=== PATIENT | male | born 1965 | race Caucasian/White ===

== ENCOUNTER 2017-11-01 09:01 | Observation (INO) | payer BC, OTHER ==
[2017-11-01] VITALS (7 sets, daily range): BP systolic 119–167; BP diastolic 76–97; PULSE 78–111; TEMP 36.8–37.6; O2SAT 93–97; Ht 162.6 cm; Wt 84.0 kg
[~2017-11-01] VITALS: Ht 162.6 cm; Wt 84.0 kg
[~2017-11-01 09:01] MED LIST: CEFAZOLIN 2000MG IV PUSH 15 ML IV SCH; SOD PHOSPHATE/SOD BIPHOSPHATE ENEMA 132 ML BTL PR SCH
[2017-11-01] MEDS ORDERED: BISA10SU3 PR (09:45)
[2017-11-01 10:04] LABS: BASO % 0.4 %; BASO ABS # 0.04 K/uL (0-0.2); EOS % 1.9 %; EOS ABS # 0.17 K/uL (0-0.5); HEMATOCRIT 45.5 % (42-52); HEMOGLOBIN 16.4 g/dL (14.0-18.0); IG# 0.04 K/uL (0.00-0.02); LYMPH % 28.5 %; LYMPH ABS # 2.57 K/uL (1.2-3.4); MEAN CELL VOLUME 85.8 fL (80-100); MEAN CORPUSCULAR HEMOGLOBIN 30.9 pg (25-34); MEAN PLATELET VOLUME 9.6 fL (7.4-10.4); MONO ABS # 0.72 K/uL (0.11-0.59); NEUT % 60.8 %; NEUT ABS # 5.47 K/uL (1.4-6.5); PLATELET COUNT 274 K/uL (130-400); RED CELL DISTRIBUTION WIDTH CV 12.8 % (11.5-14.5); RED CELL DISTRIBUTION WIDTH SD 40.4 fL (36.4-46.3); WHITE BLOOD COUNT 9.01 K/uL (4.8-10.8)
[2017-11-01] MEDS ORDERED: SOD PHOSPHATE/SOD BIPHOSPHATE ENEMA 132 ML BTL ONE (10:15)
[2017-11-01 10:45] LABS: CALCIUM 9.1 mg/dl (8.5-10.1); CREATININE 1.18 mg/dl (0.60-1.40)
[2017-11-01] MEDS ORDERED: NURSING VERBAL MED ORDER ONE (10:45)
[2017-11-01] MEDS ORDERED: SOD PHOSPHATE/SOD BIPHOSPHATE ENEMA 132 ML BTL PR SCH (11:00)
[2017-11-01] MEDS ORDERED: MIDAZOLAM HCL 1 MG/ML 2ML VIAL ONE (12:59)
[2017-11-01] MEDS ORDERED: FENTANYL CITRATE INJ 50 MCG/1 ML 2 ML VIAL ONE ×2 (12:59→13:37)
[2017-11-01] MEDS ORDERED: BUPIVACAINE 0.5 % 5 MG/1 ML MPF 30ML VIAL ONE (13:04)
[2017-11-01] MEDS ORDERED: GELATIN SPONGE SZ 100 ONE (13:04)
[2017-11-01] MEDS ORDERED: GELATIN SPONGE 12-7MM ONE (13:04)
[2017-11-01] MEDS ORDERED: ISOSULFAN BLUE 10 MG/ML VIAL 5 ML ONE (13:05)
[2017-11-01] MEDS ORDERED: LIDOCAINE HCL 1% 20 ML VIAL ONE (13:05)
--- NOTE | 2017-11-01 13:08 | History & Physical Bridge Note ---
H&P Re-Evaluation Bridge Note: I have examined the patient, reviewed the History & Physical and in the interval since the performance of the History & Physical I have noted the following changes of clinical significance: No changes noted
[2017-11-01] MEDS ORDERED: GLYCOPYRROLATE INJ 0.2 MG/ML VIAL ONE (13:51)
[2017-11-01] MEDS ORDERED: LIDOCAINE HCL 2% 2 ML VIAL (20MG/ML) ONE (13:51)
[2017-11-01] MEDS ORDERED: ONDANSETRON INJ 2 MG/ML 2 ML VIAL ONE (13:51)
[2017-11-01] MEDS ORDERED: NEOSTIGMINE METHYLSULFATE 5 MG/5 ML SYR ONE (13:51)
[2017-11-01] MEDS ORDERED: ROCURONIUM BROMIDE 10 MG/ML 5 ML VIAL IV ONE (13:51)
[2017-11-01] MEDS ORDERED: DEXAMETHASONE SOD INJ 4 MG/ML VIAL ONE (13:51)
[2017-11-01] MEDS ORDERED: PROPOFOL IV EMULSION 10 MG/ML 20 ML VIAL IV ONE (13:51)
[2017-11-01] MEDS ORDERED: EpHEDrine SULFATE INJ 50 MG/ML AMP IV PRN (14:00)
[2017-11-01] MEDS ORDERED: MEPERIDINE HCL 25 MG/ML CARP IV PRN (14:00)
[2017-11-01] MEDS ORDERED: LABETALOL HCL IV 5 MG/ML 20ML IV PRN (14:00)
[2017-11-01] MEDS ORDERED: ONDANSETRON INJ 2 MG/ML 2 ML VIAL IV PRN ×2 (14:00→14:15)
[2017-11-01] MEDS ORDERED: FENTANYL CITRATE INJ 50 MCG/1 ML 2 ML VIAL IV PRN (14:00)
[2017-11-01] MEDS ORDERED: ATROPINE SULFATE 0.1 MG/ML 5ML SYR IV PRN (14:00)
[2017-11-01] MEDS ORDERED: HYDROmorphone INJ 1 MG/ML SYR IV PRN (14:00)
[2017-11-01] MEDS ORDERED: HYDROmorphone INJ 2 MG/ML SYR/VIAL ONE (14:04)
--- NOTE | 2017-11-01 14:05 | [facility] Post Operative Brief Note ---
Immediate Operative Summary Operative Date Nov 01, 2017. Pre-Operative Diagnosis Grade 4 Thrombosed Internal Hemorrhoid Post-Operative Diagnosis Grade 4 Thrombosed Internal Hemorrhoid Procedure(s) Performed Hemorrhoidectomy Surgeon Dr. Gómez Tapia Trace Evidence Technician Surgeon(s) Christal Mendoza PA-C Estimated Blood Loss 10ml Findings Consistent with Post-Op Diagnosis Specimens Specimen A) Hemorrhoidal tissue Drains None Anesthesia Type General Complication(s) none
[2017-11-01] MEDS ORDERED: MoRPHine SULFATE 4 MG/ML 1 ML CARP\\VIAL IV PRN (14:15)
[2017-11-01] MEDS ORDERED: KETOROLAC TROMETHAMINE 30 MG/ML VIAL ONE (14:17)
--- NOTE | 2017-11-01 15:10 | Anesthesiology Progress Note ---
Anesthesia Post Op Note Date & Time Nov 01, 2017 at 15:09 Vital Signs Pain Intensity: 0 Vital Signs Past 12 Hours Date Time Temp Pulse Resp B/P (MAP) Pulse Ox O2 Delivery O2 Flow Rate FiO2 11/01/17 15:00 92 18 145/92 97 Nasal Cannula 2 11/01/17 14:50 77 18 152/96 98 Nasal Cannula 2 11/01/17 14:40 79 18 149/92 98 Oxymask 10 11/01/17 14:30 78 14 132/82 98 Oxymask 10 11/01/17 14:22 37.1 82 14 134/71 95 Oxymask 10 11/01/17 09:45 37 89 18 122/84 (97) 97 Room Air Notes Mental Status: alert / awake / arousable, participated in evaluation Pt Amnestic to Procedure: Yes Nausea / Vomiting: adequately controlled Pain: adequately controlled Airway Patency, RR, SpO2: stable & adequate BP & HR: stable & adequate Hydration State: stable & adequate Anesthetic Complications: no major complications apparent
[2017-11-01] MEDS ORDERED: IV FLUIDS COMPLETED PRN (16:00)
[2017-11-01] MEDS ORDERED: D5W AND 1/2NSS + 20MEQ KCL 1,000 ML IV SCH (17:00)
--- NOTE | 2017-11-01 18:22 | OPERATIVE REPORT ---
DATE OF OPERATION: 11/01/2017 PREOPERATIVE DIAGNOSIS: Thrombosed grade 4 internal hemorrhoids. POSTOPERATIVE DIAGNOSIS: Same. PROCEDURE: Hemorrhoidectomy. SURGEON: Dr. Tapia. TITLE SEARCH MANAGER: Christal Mendoza PA-C. FINDINGS: The patient had 1 large thrombosed grade 4 internal hemorrhoid along the right lateral wall of the anal opening. There was a lot of edema surrounding the entire anal opening. There was a smaller thrombosed grade 3 hemorrhoid posterior left. There were some other areas of thrombosis that were much smaller on the anterior side. TECHNIQUE: The patient was given a general anesthetic and then positioned prone. The area was prepped and draped in the usual sterile fashion. The large thrombosed hemorrhoid was addressed first. It was grasped with 2 Allis on the end and elevated. The junction between the anoderm and the rectal mucosa was opened first laterally and then medially and then the hemorrhoid was amputated, it off the underlying sphincter muscles. There were few other areas of clot that were opened and the clot removed. The anoderm edge was then reapproximated to the mucosa of the rectum using a running 2-0 chromic locked suture. The smaller hemorrhoid was then removed in a similar fashion. The clot areas anteriorly were opened and the clot removed. The area was inspected for bleeding and none was seen. The anus was then packed with Gelfoam. Estimated blood loss was 10 mL. Sponge, needle and instrument counts were correct prior to closure. The patient tolerated the surgical procedure without complication and was transferred to recovery. I attest to the content of the Intraoperative Record and any orders documented therein. Any exception s are noted below.
[2017-11-01] MEDS: DOCUSATE SODIUM 100 MG CAP PO SCH (20:40)
[2017-11-02 03:56] VITALS: BP 143/84; PULSE 81; TEMP 37.3; O2SAT 95
[2017-11-02] MEDS: OXYCODONE/ACETAMINOPHEN 5-325 TAB PO PRN ×2 (05:30→14:25)
[2017-11-02 06:52] VITALS: BP 107/69; PULSE 72; TEMP 36.8; O2SAT 97
--- NOTE | 2017-11-02 08:34 | Anesthesiology Progress Note ---
Anesthesia Post Op Note Date & Time Nov 02, 2017 at 08:33 Vital Signs Pain Intensity: 3 Vital Signs Past 12 Hours Date Time Temp Pulse Resp B/P (MAP) Pulse Ox O2 Delivery O2 Flow Rate FiO2 11/02/17 06:52 36.8 72 19 107/69 (82) 97 Room Air 11/02/17 03:56 37.3 81 16 143/84 (103) 95 Room Air 11/01/17 23:22 Room Air 11/01/17 21:53 37.3 78 18 130/76 (94) 95 Room Air Notes Mental Status: alert / awake / arousable Pt Amnestic to Procedure: Yes Nausea / Vomiting: adequately controlled Pain: adequately controlled Airway Patency, RR, SpO2: stable & adequate BP & HR: stable & adequate Hydration State: stable & adequate Anesthetic Complications: p t is having urinary retention. pt was straight cathed last night.
[2017-11-02] MEDS: DOCUSATE SODIUM 100 MG CAP PO SCH (09:43)
--- NOTE | 2017-11-02 11:23 | Surgery Progress Note ---
Surgery Progress Note Date of Service Nov 02, 2017. Subjective Post OP Day: 1 (s/p excision of thrombosed hemorrhoid) + feeling well, + ambulating, + pain controlled, + diet, No chest pain, No SOB, No bowel movement, No flatus, No nausea, No vomiting Objective Vital Signs: Date Time Temp Pulse Resp B/P (MAP) Pulse Ox O2 Delivery O2 Flow Rate FiO2 11/02/17 07:45 Room Air 11/02/17 06:52 36.8 72 19 107/69 (82) 97 Room Air 11/02/17 03:56 37.3 81 16 143/84 (103) 95 Room Air 11/01/17 23:22 Room Air 11/01/17 21:53 37.3 78 18 130/76 (94) 95 Room Air 11/01/17 19:07 37.3 111 18 119/79 (92) 95 Nasal Cannula 2.0 11/01/17 17:32 37.1 109 18 134/85 (101) 93 Nasal Cannula 2.0 11/01/17 16:30 37.6 109 18 167/93 (117) 95 Nasal Cannula 2.0 11/01/17 16:00 36.8 84 16 138/91 (107) 97 Nasal Cannula 2.0 11/01/17 15:45 Nasal Cannula 2.0 11/01/17 15:45 36.9 84 16 155/97 (116) 94 Nasal Cannula 2.0 11/01/17 15:45 36.9 84 16 155/97 94 Nasal Cannula 2.0 11/01/17 15:45 Nasal Cannula 2.0 11/01/17 15:25 37.4 78 18 145/99 97 Nasal Cannula 2 11/01/17 15:15 78 14 156/100 95 Nasal Cannula 2 11/01/17 15:00 92 18 145/92 97 Nasal Cannula 2 11/01/17 14:50 77 18 152/96 98 Nasal Cannula 2 11/01/17 14:40 79 18 149/92 98 Oxymask 10 11/01/17 14:30 78 14 132/82 98 Oxymask 10 11/01/17 14:22 37.1 82 14 134/71 95 Oxymask 10 General Appearance: WD/WN, no apparent distress Head: normocephalic, atraumatic Neck: trachea midline Respiratory/Chest: no respiratory distress, no accessory muscle use External Rectal examination: Inspection showed Gelfoam still present in rectum. There is still moderate edema of rectal tissue, healthy pink tissue, no necrosis, no drainage, no active bleeding. Assessment & Plan POD # 1 s/p Excision of thrombosed hemorrhoid -vitals stable -afebrile - pain minimal, controlled - no bowel function - urinary retention, required straight cath last night, able to urinate post straight cath but still feels inadequately voiding Plan: Continue current pain management Continue regular diet Encourage ambulation Bladder scan prn unable to void completely Patient seen with Dr. Tapia around 1:30 pm Voiding without difficulty, tolerating diet, pain controlled Discharge home this afternoon f/u surgical office 1 week discharge instructions reviewed Rx for Percocet prn pain and Colace BID Dr. Tapia has seen patient, agrees with above
[2017-11-02] MEDS ORDERED: OXYC-57 PO (13:44)
--- NOTE | 2017-11-02 13:51 | Discharge Instructions ---
Discharge Instructions Date of Service Nov 02, 2017. Admission Reason for Admission: Internal Hemorrhoids Discharge Discharge Diagnosis / Problem: same, Thrombosed internal hemorrhoid Discharge Goals Goal(s): Decrease discomfort, Improve function Activity Recommendations Activity Limitations: per Instructions/Follow-up section No strenuous activity until cleared by surgeon No driving while taking narcotic pain medication or until you are pain free . Instructions / Follow-Up Instructions / Follow-Up You may shower when you get home Sitz baths following bowel movements Avoid any constipation or straining. (drink plenty of water, Stool softener twice a day, light activity and increase fiber in diet) You will be given narcotic pain medication as needed for moderate to severe pain. You may take extra strength Ibuprofen as needed for mild pain. You may take extra strength Tylenol as needed for mild pain if you are no longer taking Percocet as Percocet has Tylenol in it. Follow up surgical office in 1 week, please call office at [phone] to make an appointment. Current Hospital Diet Patient's current hospital diet: Regular Diet Discharge Diet Recommended Diet: Regular Diet (high fiber diet) Procedures Procedures Performed: Hemorrhoidectomy Pending Studies Studies pending at discharge: yes List of pending studies: Hemmorrhoid pathology- will be reviewed at follow up visit Medical Emergencies . Who to Call and When: Medical Emergencies: If at any time you feel your situation is an emergency, please call 911 immediately. . Non-Emergent Contact Non-Emergency issues call your: Primary Care Provider, Surgeon Call Non-Emergent contact if: you have a fever, temperature is above 101, your pain is not controlled, your pain is worsening, your pain is unusual for you, wound has increased drainage, wound has increased redness, wound has increased pain . "Provider Documentation" section prepared by Christal Mendoza. . VTE Core Measure Inpt VTE Proph given/why not?: Treatment not indicated [place] Drug Monitoring Program Search Results: patient reviewed within database, no issues identified
[2017-11-02] MEDS ORDERED: DOCU-94 PO (13:52)
[2017-11-02 14:03] VITALS: BP 107/69; PULSE 72; TEMP 36.8; O2SAT 97
[2017-11-02 15:06] VITALS: BP 128/78; PULSE 81; TEMP 37; O2SAT 94
--- NOTE | 2017-11-05 11:18 | Discharge Summary ---
Discharge Summary Dates Admission Date / Time: Nov 01, 2017 at 14:09 Discharge Date: Nov 02, 2017 Dispostion / Condition Discharge Disposition: Home Condition at Discharge: Good Principal Diagnosis (1) Grade IV internal hemorrhoids Problem List (1) No chronic problems Consultations / Procedures Consultations: None Procedures: Hemorrhoidectomy Vaccinations: None Pending Studies / Follow-Up Hemorrhoid pathology. Will be reviewed at follow-up visit Medication Reconciliation New Medications: Docusate Sodium (Colace) 100 Mg Cap 1 CAP PO BID for 30 Days, #60 CAP Oxycodone/Acetaminophen 5MG/325MG (Percocet 5MG/325MG) Tab 1 TABLET PO Q4H PRN for Pain, #18 TAB Discontinued Medications: Bisacodyl (Dulcolax) 10 Mg Sup 1 SUPP AR, SUP Admission HPI Per the Admitting provider: Andrew is a 52-year-old male who presented to outpatient surgical office on Wednesday to see Dr. Tapia for rectal pain he was found to have grade 4 thrombosed hemorrhoids. His pain continued and escalated over the weekend therefore he presented to [facility] for hemorrhoidectomy. Hospital Course (1) Grade IV internal hemorrhoids Patient underwent hemorrhoidectomy by Dr. Tapia in the operating room. Patient tolerated procedure well without any difficulties. Patient was transferred to recovery room and then the medical/surgical floor for postoperative care. Was kept overnight for observation and pain management. He was started on regular diet, IV fluids, p.o. Percocet with IV morphine for breakthrough pain, IV Zofran as needed for nausea, and activity as tolerated. Patient was evaluated in the morning of postop day #1. He did have some urinary retention which required straight catheterization. There was about 600 cc of urine from the straight cath. He was able to urinate on his own following straight catheterization. Pain was minimal and controlled. Tolerating regular diet. Patient was discharged home on postop day #1 in stable condition Discharge Instructions As given the patient Copies To Primary Care Provider: Rosalind Waters D.O..
== END 2017-11-02 15:45 | disposition home or self-care (01) ==
LOC: C.OR 09:01 → C.MSN 14:09 → ENRESERV 15:19
PROVIDERS: ADMIT Surgery; ATTEND Surgery
DX: K64.3 Fourth degree hemorrhoids (principal); Z87.891 Personal history of nicotine dependence; Z82.49 Family history of ischemic heart disease and other diseases of the circulatory system; Z82.3 Family history of stroke

== ENCOUNTER 2023-08-20 01:06 | Observation (INO) ==
[2023-08-20 01:37] LABS: Basophils # (auto) 0.05 K/uL (0.00-0.20); Basophils % (auto) 0.5 %; Eosinophils # (auto) 0.29 K/uL (0.00-0.50); Eosinophils % (auto) 3.1 %; Hematocrit (blood only) 49.8 % (42.0-52.0); Hemoglobin 16.9 g/dl (14.0-18.0); Immature Granulocytes # (auto) 0.05 K/uL (0.01-0.20); Immature Granulocytes % (auto) 0.5 %; Lymphocytes # (auto) 2.26 K/uL (1.20-3.40); Lymphocytes % (auto) 24.2 %; Mean Corpuscular Hemoglobin 29.3 pg (25.0-34.0); Mean Corpuscular Hgb Conc 33.9 g/dL (32.0-36.0); Mean Corpuscular Volume 86.3 fL (80.0-100.0); Monocytes % (auto) 9.7 %; Neutrophils # (auto) 5.77 K/uL (1.40-6.50); Platelet Count 257 K/uL (130-400); RDW Coefficient of Variation 12.3 % (11.5-14.5); RDW Standard Deviation 38.5 fL (36.4-46.3); Red Blood Count 5.77 M/uL (4.70-6.10); White Blood Count 9.32 K/ul (4.8-10.8)
[2023-08-20 01:51] LABS: Partial Thromboplastin Ratio 1.1; Partial Thromboplastin Time 29.9 Seconds (21.0-31.0); Prothrombin Time 11.3 Seconds (9.0-12.0)
[2023-08-20 01:59] LABS: Albumin Globulin Ratio 1.3 (0.9-2); Albumin Level 4.6 gm/dl (3.4-5.0); BUN Creatinine Ratio 13.8 (10-20); Bilirubin,Total 1.2 mg/dl (0.2-1.0); Calcium 9.5 mg/dl (8.6-10.3); Creatinine Clr Calc Pharmacy 74.3 ml/min; Est GFR (African American) 86.9 ml/min; Est GFR (Non-African American) 74.9 ml/min; Globulin 3.5 gm/dl (2.5-4.0); Potassium 3.9 mmol/L (3.5-5.1); Total Protein 8.1 gm/dl (6.0-8.3)
[2023-08-20 02:05] LABS: Troponin I High Sensitivity 3.9 pg/ml (0-20)
[2023-08-20] MEDS ORDERED: SODIUM CHLORIDE 0.9% 1,000 ML IV ONE (03:27)
--- NOTE | 2023-08-20 03:30 | Emergency Department Note ---
Impression & Plan Abnormal ECG, Chest pain, Former tobacco use ED Provider Note Name: STEW WEST Age: 58 Sex: Male Arrives Via: Walk-In Informant: Patient, ED Provider: Brandt Pandey MD Chief Complaint: Chest pain Impression: As per impressions above Medical Decision Making: Pleasant 58-year-old male with distant history smoking as well as significant family history of CAD arrives for pressure-like upper chest pain radiating to shoulders. He is quite uncomfortable appearing initial EKG questionable ST depressions anteriorly. Initial troponin labs look good. Repeat EKG shows worsening of ST depression T wave inversions. Repeat troponin is also still within normal range. D-dimer is normal thus PE is unlikely. His symptoms are not consistent with dissection. He was given some aspirin and nitro and pain seems to have improved. He was a bit hypertensive on arrival and with improving blood pressure hypertensive urgency is possible although blood pressure was not really that elevated to cause the sort of symptom. I am still a bit concerned about unstable angina especially given the EKG abnormalities and despite normal troponins I think hospitalization for further cardiac work-up is likely indicated. I discussed this with the [facility] and they agree and will bring him in for further management. Patient is on board with this plan as his . I did explain to them reasoning behind hospitalization and they agree. Triage/Nursing Notes reviewed by Me Differential:Cardiac ischemia, aortic dissection, pulmonary embolism, pneumothorax, pneumonia, pericarditis, myocarditis, esophageal rupture, GERD, cholecystitis, pancreatitis, musculoskeletal, as well as other pathologies. Vital Signs: reviewed and remarkable for hypertensive Interventions: Aspirin 324 mg p.o., sublingual nitroglycerin Labs:ED labs Reviewed by me and remarkable for no significant abnormalities with normal D-dimer and normal troponin x2 Imagin view chest x-ray as per my interpretation no infiltrate, effusion, widened cardiac border, pneumothorax EKG#1 as per my interpretation. Indication chest pain. Somewhat poor baseline but normal sinus rhythm at 92 bpm QTc of 417. There are T wave inversions in the anterior leads. When compared to EKG from November 01, 2017 T wave inversions are new. EKG#2:As per my interpretation. Indication chest pain. Normal sinus rhythm at 97 bpm QTc 419. There are anterior ST depressions with T wave inversions. There is no STEMI or reciprocal change. When compared to EKG from earlier in evening ST depressions have worsened. Cardiac/Tele Monitoring: Cardiac Monitoring: An Order was placed for continuous cardiac monitoring. The monitor shows a rate of 90 with a normal sinus rhythm. Consults:Dr. Mendoza of the [facility] Plan: Disposition:Hospitalization. Condition: [Good] [Referrals: PCP][] Prescriptions:[] PDMP: [] History of Present Illness: Pleasant 58-year-old gentleman arrives for evaluation of upper chest discomfort. Notes around 10:30 PM developed increasing tightness of the upper chest. Associated with mild cough. Associated with chills and feeling cold. Notes heart rate was somewhat elevated as well as blood pressure. He just does not feel himself. Has never had any symptoms like this before. Denies any syncope, sharp chest pain, back pain, abdominal pain, radiation of symptoms or other concerning signs or symptoms. Has not had any recent fevers, chills, nausea, vomiting. No leg swelling or calf pain. Patient does note that he travels regularly including to [email or web address] and flies often. No here history of significant medical issues. No history of cardiac disease or PE/DVT. He does have a familial history of early cardiac disease in both his father and mother. Patient was a smoker for many years but quit almost 2 and half decades ago. Past Medical History:No significant past medical history other than smoker quit 25 years ago Home Medications:No daily medications Allergies:No known drug allergies Vitals:Blood Pressure: 160/112, Pulse 90, RR 20, T 36.4C, O2 96% on RA Physical Exam: GENERAL: Patient is anxious appearing and in minimal distress. RESPIRATORY: No dyspnea. Clear to auscultation and equal bilaterally. CARDIOVASCULAR: Regular rate and rhythm.No murmur appreciated. GASTROINTESTINAL: Abdomen soft, non-tender, no peritonitis. BACK: No midline tenderness, no CVA tenderness EXTREMITIES: Normal motion all extremities, no cyanosis, no edema. NEUROLOGIC: Alert and oriented. No focal neurologic deficits appreciated SKIN: No rash, no jaundice, no diaphoresis. PSYCH: Appropriate GCS: 15 ED Course: Times/Reassessments: Patient's pain eventually improving continued abnormality in EKG and patient and are comfortable with plan for hospitalization. Brandt Pandey MD Past Med/Surg History Social History (Reviewed 08/20/23 @ 12:42 by AMANDA Maher Smoking Status: Former smoker Second Hand Exposure: No; Do You Dip or Chew Tobacco: No; Tobacco Cessation Education Requested by Patient: No Hx Alcohol Use: Yes Hx Substance Use: No Preferred Language: Sudanese Communication Ability: Effective Court Officer Required: No Beliefs That Will Affect Care: None Current Living Situation: Spouse Other Information That Helps Us Care for You: No Feels Safe at Home: Yes Safety Concerns: Feels Safe At This Time Assistive Devices: None Allergies Allergies Allergy/AdvReac Type Severity Reaction Status Date / Time No Known Allergies Allergy Unverified 08/20/23 02:18 Home Meds Home Medications Medication Instructions Recorded Confirmed No Known Home Medications 08/20/23 08/20/23 Results & Data (ED) Vital Signs Vital Signs - 24 hr 08/20/23 01:08 08/20/23 02:22 08/20/23 02:50 Temperature 36.4 C L Temperature Source Temporal Artery Scan Pulse Rate 88 94 H Pulse Rate [Apical] 90 Pulse Rhythm [Apical] Regular Pulse Strength [Apical] Normal Respiratory Rate 18 20 Respiratory Effort / Characteristics Non-Labored Spontaneous Respiratory Depth Normal Normal Respiratory Pattern Regular Blood Pressure 159/99 H Blood Pressure [Right Arm] 160/112 H Blood Pressure Mean 119 Blood Pressure Mean [Right Arm] 128 Blood Pressure Position [Right Arm] Lying Pulse Oximetry 97 96 Oxygen Delivery Method Room Air Room Air Sepsis Recent Fever Within 48 Hours No Sepsis New/Unexplained Change in Mental Status No Sepsis Action Taken by Nursing No Action Required 08/20/23 05:00 Temperature Temperature Source Pulse Rate Pulse Rate [Apical] 92 H Pulse Rhythm [Apical] Regular Pulse Strength [Apical] Normal Respiratory Rate 20 Respiratory Effort / Characteristics Non-Labored Spontaneous Respiratory Depth Normal Respiratory Pattern Regular Blood Pressure Blood Pressure [Right Arm] 112/76 Blood Pressure Mean Blood Pressure Mean [Right Arm] 88 Blood Pressure Position [Right Arm] Pulse Oximetry 95 Oxygen Delivery Method Room Air Sepsis Recent Fever Within 48 Hours Sepsis New/Unexplained Change in Mental Status Sepsis Action Taken by Nursing Laboratory Data 08/20/23 01:20 08/20/23 01:20 Lab Results 08/20/23 08/20/23 08/20/23 Range/Units 01:20 03:45 03:48 WBC 9.32 (4.8-10.8) K/ul RBC 5.77 (4.70-6.10) M/uL Hgb 16.9 (14.0-18.0) g/dl Hct 49.8 (42.0-52.0) % MCV 86.3 (80.0-100.0) fL MCH 29.3 (25.0-34.0) pg MCHC 33.9 (32.0-36.0) g/dL RDW Std Deviation 38.5 (36.4-46.3) fL RDW Coeff of Araseli 12.3 (11.5-14.5) % Plt Count 257 (130-400) K/uL MPV 9.0 L (9.4-12.4) fL Immature Gran % (Auto) 0.5 % Neut % (Auto) 62.0 % Lymph % (Auto) 24.2 % [place] % (Auto) 9.7 % Eos % (Auto) 3.1 % Baso % (Auto) 0.5 % Neut # (Auto) 5.77 (1.40-6.50) K/uL Lymph # (Auto) 2.26 (1.20-3.40) K/uL [place] # (Auto) 0.90 H (0.11-0.59) K/uL Eos # (Auto) 0.29 (0.00-0.50) K/uL Baso # (Auto) 0.05 (0.00-0.20) K/uL Immature Gran # (Auto) 0.05 (0.01-0.20) K/uL PT 11.3 (9.0-12.0) Seconds INR 1.0 (0.9-1.1) APTT 29.9 (21.0-31.0) Seconds PTT Ratio 1.1 D-Dimer 210 (0-500) ug/L FEU Sodium 139 (136-145) mmol/L Potassium 3.9 (3.5-5.1) mmol/L Chloride 102 (98-107) mmol/L Carbon Dioxide 29 (21-32) mmol/L Anion Gap 8 (3-11) BUN 15 (6-23) mg/dl Creatinine 1.09 (0.6-1.4) mg/dl Est Cr Clr Drug Dosing 74.3 ml/min Est GFR ( Amer) 86.9 ml/min Est GFR (Non-Af Amer) 74.9 ml/min BUN/Creatinine Ratio 13.8 (10-20) Glucose 105 H (70-99(Fasting)) mg/dl Calcium 9.5 (8.6-10.3) mg/dl Magnesium 2.1 (1.7-2.4) mg/dl Total Bilirubin 1.2 H (0.2-1.0) mg/dl AST 23 (13-39) U/L ALT 33 (7-52) U/L Alkaline Phosphatase 51 (34-104) U/L Troponin I High Sens 3.9 3.6 (0-20) pg/ml Total Protein 8.1 (6.0-8.3) gm/dl Albumin 4.6 (3.4-5.0) gm/dl Globulin 3.5 (2.5-4.0) gm/dl Albumin/Globulin Ratio 1.3 (0.9-2) SARS-CoV-2 (PCR) NEGATIVE (Negative) Influenza Type A (PCR) Negative (Neg) Influenza Type B (PCR) Negative (Neg) RSV (RT-PCR) Negative (Neg) Administered Medications Discontinued Medications Aspirin (Aspirin 81 Mg Chew) 324 mg PO NOW STA Stop: 08/20/23 03:51 Last Admin: 08/20/23 03:59 Dose: 324 mg Documented By: AUGUST Enoxaparin Sodium (Enoxaparin Inj 40 Mg/0.4 Ml Syr) 40 mg SQ QAM JASON Stop: 09/19/23 08:59 Last Admin: 08/20/23 11:39 Dose: 40 mg Documented By: Heparin Sodium/Dextrose (Heparin Iv Adult Wt-Based Standard *No* Bolus Protocol) 1 each IV Q30M [facility]; Protocol Stop: 08/20/23 08:09 Last Admin: 08/20/23 05:53 Dose: Not Given Documented By: AUGUST Sodium Chloride (Nss) 1,000 mls @ 999 mls/hr IV .Q1H1M ONE Stop: 08/20/23 04:27 Last Infusion: 08/20/23 05:34 Dose: Infused Documented By: Admin: 08/20/23 03:59 Dose: 999 mls/hr Documented By: NAW Lactated Ringer's (Lr) 1,000 mls @ 60 mls/hr IV .[id number] ONE Stop: 08/20/23 22:25 Last Admin: 08/20/23 06:32 Dose: 60 mls/hr Documented By: AUGUST Metoprolol Tartrate (Metoprolol Tartrate 25 Mg Tab) 12.5 mg PO NOW STA Stop: 08/20/23 05:47 Last Admin: 08/20/23 05:53 Dose: Not Given Documented By: AUGUST Nitroglycerin (Nitroglycerin Sl 0.4 Mg/Tab Tab) 0.4 mg SL NOW STA Stop: 08/20/23 03:51 Last Admin: 08/20/23 03:59 Dose: 0.4 mg Documented By: AUGUST Imaging Data Radiologist's Impression: Chest X-Ray 08/20/23 01:12 XR chest 1V not portable CLINICAL HISTORY: Chest pain, nonspecific TECHNIQUE: Single frontal radiograph of the chest was obtained. Comparison: None available at the time of this dictation. FINDINGS: No lines and tubes are seen. The cardiomediastinal silhouette is normal. The lungs are clear. No evidence of pleural effusion or pneumothorax. IMPRESSION: No acute chest disease. ACT 112: Negative or not required by law. Electronically signed by: Carlos Dow M.D. 08/20/2023 7:54 AM Discharge Plan Visit Data Chief Complaint: Cardiac Assessment Stated Complaint: CHEST TIGHTNESS AND PAIN ED Provider: Brandt Pandey Discharge Problem: Abnormal ECG, Chest pain, Former tobacco use Patient Disposition: Admitted As Inpatient Discharge Instructions Interventions: ED Discharge Assessment Last Done: 08/20/23 07:53
[2023-08-20] MEDS ORDERED: ASPIRIN 81 MG CHEW PO STA (03:50)
[2023-08-20] MEDS ORDERED: NITROGLYCERIN SL 0.4 MG/TAB TAB SL STA (03:50)
[2023-08-20 03:51] LABS: D Dimer 210 ug/L FEU (0-500)
[2023-08-20 04:30] LABS: Influenza A virus by PCR Negative (Neg); Influenza B virus by PCR Negative (Neg); RSV by PCR Negative (Neg); SARS CoV2 RNA(COVID-19) Ceph NEGATIVE (Negative)
[2023-08-20 04:59] LABS: Magnesium 2.1 mg/dl (1.7-2.4)
--- NOTE | 2023-08-20 05:37 | History & Physical Report ---
Date of Service August 20, 2023 Assessment & Plan (1) Chest pain: Plan: Rule out ACS given nitroglycerin relief and patient risk factors for ischemic heart disease Situational hypertension Past tobacco abuse OBS PCU Follow troponin, initiate beta-tarun and IV heparin if with subsequent troponin elevation Aspirin for CAD prevention until ACS ruled out Cardiology consult Re: Chest pain N.p.o. until patient seen by cardiology in anticipation of ischemic work-up DVT prophylaxis. Lovenox subcu Full code Case discussed with Dr. Fontanez (composing machine operator) over the phone given possible ST elevations in the inferior leads on second EKG done at the ER. EKGs transmitted to him via [place] text. Possible pericarditis as per Dr. Fontanez. He recommends getting an urgent TTE and consulting [facility] cardiology in a.m. to evaluate patient. He will also contact Dr. Soto of [facility] in a.m. regarding patient. Text document was generated using Proficiency voice recognition software. It may contain grammatical or spelling errors. Kindly contact undersigned for clarification of any documentation item in question. History of Present Illness Chief Complaint: Chest pain Primary Care Provider: Rosalind Waters DO History obtained from patient, family, and records. Medical history significant for past tobacco abuse. Last confinement 2017 under General Surgery service for elective hemorrhoidectomy. Patient was watching a football game last night when he experienced pleuritic substernal pain different from reflux. No cough, no SOB, no trauma. No previous episodes. Denies headache symptoms. Highest SBP of 160s documented at the ER. Chest pain relieved after aspirin and nitroglycerin administration at the ER. 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 Allergies Allergy/AdvReac Type Severity Reaction Status Date / Time No Known Allergies Allergy Unverified 08/20/23 02:18 Home Medications Medication Instructions Recorded Confirmed Type No Known Home Medications 08/20/23 08/20/23 History Past Med/Surg History Social History Smoking Status: Former smoker Second Hand Exposure: No; Do You Dip or Chew Tobacco: No; Tobacco Cessation Education Requested by Patient: No Hx Alcohol Use: Yes Hx Substance Use: No Preferred Language: Puerto Rican Communication Ability: Effective Regulatory Submissions Associate Required: No Beliefs That Will Affect Care: None Current Living Situation: Spouse Other Information That Helps Us Care for You: No Feels Safe at Home: Yes Safety Concerns: Feels Safe At This Time Assistive Devices: None Review of Systems Review of Systems: As per HPI, all other systems reviewed and negative Physical Exam Physical Exam: GENERAL: Comfortable, pleasant, obese, no respiratory distress SKIN: Normal color, warm HEENT: Bespectacled, [place] palpebral conjunctivae, no ptosis, moist buccal mucosa NECK : Supple, short neck, no tenderness CHEST : CTA, no tenderness HEART : RRR, no obvious murmurs ABDOMEN: Some distention, nontender EXTREMITIES : No LE swelling/tenderness, no other conspicuous deformities noted NEUROLOGIC : Coherent, no facial asymmetry, no other gross focality Results & Data Results & Data Vital Signs (Past 12 Hours) Vital Signs Temp Pulse Pulse Resp BP BP Pulse Ox 08/20/23 02:50 94 H 08/20/23 02:22 90 20 160/112 H 96 08/20/23 01:08 36.4 C L 88 18 159/99 H 97 O2 Del Method 08/20/23 02:50 08/20/23 02:22 Room Air 08/20/23 01:08 Room Air Laboratory Results Laboratory Results WBC 9.32 K/ul (4.8-10.8) 08/20/23 01:20 RBC 5.77 M/uL (4.70-6.10) 08/20/23 01:20 Hgb 16.9 g/dl (14.0-18.0) 08/20/23 01:20 Hct 49.8 % (42.0-52.0) 08/20/23 01:20 MCV 86.3 fL (80.0-100.0) 08/20/23 01:20 MCH 29.3 pg (25.0-34.0) 08/20/23 01:20 MCHC 33.9 g/dL (32.0-36.0) 08/20/23 01:20 RDW Std Deviation 38.5 fL (36.4-46.3) 08/20/23 01:20 RDW Coeff of Araseli 12.3 % (11.5-14.5) 08/20/23 01:20 Plt Count 257 K/uL (130-400) 08/20/23 01:20 MPV 9.0 fL (9.4-12.4) L 08/20/23 01:20 Immature Gran % (Auto) 0.5 % 08/20/23 01:20 Neut % (Auto) 62.0 % 08/20/23 01:20 Lymph % (Auto) 24.2 % 08/20/23 01:20 [place] % (Auto) 9.7 % 08/20/23 01:20 Eos % (Auto) 3.1 % 08/20/23 01:20 Baso % (Auto) 0.5 % 08/20/23 01:20 Neut # (Auto) 5.77 K/uL (1.40-6.50) 08/20/23 01:20 Lymph # (Auto) 2.26 K/uL (1.20-3.40) 08/20/23 01:20 [place] # (Auto) 0.90 K/uL (0.11-0.59) H 08/20/23 01:20 Eos # (Auto) 0.29 K/uL (0.00-0.50) 08/20/23 01:20 Baso # (Auto) 0.05 K/uL (0.00-0.20) 08/20/23 01:20 Immature Gran # (Auto) 0.05 K/uL (0.01-0.20) 08/20/23 01:20 PT 11.3 Seconds (9.0-12.0) 08/20/23 01:20 INR 1.0 (0.9-1.1) 08/20/23 01:20 APTT 29.9 Seconds (21.0-31.0) 08/20/23 01:20 PTT Ratio 1.1 08/20/23 01:20 D-Dimer 210 ug/L FEU (0-500) 08/20/23 01:20 Sodium 139 mmol/L (136-145) 08/20/23 01:20 Potassium 3.9 mmol/L (3.5-5.1) 08/20/23 01:20 Chloride 102 mmol/L (98-107) 08/20/23 01:20 Carbon Dioxide 29 mmol/L (21-32) 08/20/23 01:20 Anion Gap 8 (3-11) 08/20/23 01:20 BUN 15 mg/dl (6-23) 08/20/23 01:20 Creatinine 1.09 mg/dl (0.6-1.4) 08/20/23 01:20 Est Cr Clr Drug Dosing 74.3 ml/min 08/20/23 01:20 Est GFR ( Amer) 86.9 ml/min 08/20/23 01:20 Est GFR (Non-Af Amer) 74.9 ml/min 08/20/23 01:20 BUN/Creatinine Ratio 13.8 (10-20) 08/20/23 01:20 Glucose 105 mg/dl (70-99(Fasting)) H 08/20/23 01:20 Calcium 9.5 mg/dl (8.6-10.3) 08/20/23 01:20 Magnesium 2.1 mg/dl (1.7-2.4) 08/20/23 01:20 Total Bilirubin 1.2 mg/dl (0.2-1.0) H 08/20/23 01:20 AST 23 U/L (13-39) 08/20/23 01:20 ALT 33 U/L (7-52) 08/20/23 01:20 Alkaline Phosphatase 51 U/L (34-104) 08/20/23 01:20 Troponin I High Sens 3.6 pg/ml (0-20) 08/20/23 03:48 Total Protein 8.1 gm/dl (6.0-8.3) 08/20/23 01:20 Albumin 4.6 gm/dl (3.4-5.0) 08/20/23 01:20 Globulin 3.5 gm/dl (2.5-4.0) 08/20/23 01:20 Albumin/Globulin Ratio 1.3 (0.9-2) 08/20/23 01:20 SARS-CoV-2 (PCR) NEGATIVE (Negative) 08/20/23 03:45 Influenza Type A (PCR) Negative (Neg) 08/20/23 03:45 Influenza Type B (PCR) Negative (Neg) 08/20/23 03:45 RSV (RT-PCR) Negative (Neg) 08/20/23 03:45 Diagnostic Findings Chest x-ray as per my interpretation atelectasis, no congestion EKGs as per my interpretation : (1:15 AM) rate 90, NSR, normal axis, T wave abnormalities inferior and septal leads (3:43 AM) rate 95, NSR, normal axis, possible ST elevation inferior leads, T wave inversion anterolateral leads
[2023-08-20] MEDS ORDERED: Heparin IV Adult Wt-Based Standard *NO* INITIAL Bolus Protocol IV SCH (05:38)
[2023-08-20] MEDS ORDERED: METOPROLOL TARTRATE 25 MG TAB PO STA (05:46)
[2023-08-20] MEDS ORDERED: LACTATED RINGER'S 1,000 ML IV ONE (05:46)
[2023-08-20] MEDS ORDERED: NITROGLYCERIN SL 0.4 MG/TAB TAB SL PRN (05:56)
[2023-08-20] MEDS ORDERED: MoRPHine SULFATE 4 MG/ML 1 ML CARP\\VIAL IV PRN (05:56)
[2023-08-20] MEDS ORDERED: LORazepam 0.5 MG TAB PO PRN (05:56)
[2023-08-20] MEDS ORDERED: oxyCODONE HCL IR 5 MG TAB (IMMEDIATE RELEASE) PO PRN (05:56)
[2023-08-20] MEDS ORDERED: PROMETHAZINE HCL 12.5 MG in SODIUM CHLORIDE 0.9% 50 ML IV PRN (05:56)
[2023-08-20] MEDS ORDERED: HEPARIN SODIUM/DEXTROSE 25,000 UNITS/500 ML BAG IV SCH (06:00)
[2023-08-20 06:58] LABS: C Reactive Protein 0.87 mg/dl (0-0.5); Chol HDL Ratio 4.2 (0-5)
[2023-08-20 07:04] LABS: Troponin I High Sensitivity 3.7 pg/ml (0-20)
[2023-08-20 07:20] LABS: Lyme Ab IgG w/WB Rflx Negative (Negative); Lyme Ab IgM w/WB Rflx Negative (Negative)
--- NOTE | 2023-08-20 07:55 | XRay Report ---
XR chest 1V not portable CLINICAL HISTORY: Chest pain, nonspecific TECHNIQUE: Single frontal radiograph of the chest was obtained. Comparison: None available at the time of this dictation. FINDINGS: No lines and tubes are seen. The cardiomediastinal silhouette is normal. The lungs are clear. No evid ence of pleural effusion or pneumothorax. IMPRESSION: No acute chest disease. ACT 112: Negative or not required by law. Electronically signed by: Carlos Dow M.D. 08/20/2023 7:54 AM
--- OUTSIDE RECORDS SUMMARY | 2023-08-20 08:19 | External Medical Summary | Summary of Care ---
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 Name Role Phone Rosalind Waters Kendrick DO Primary Care Provider Reason for Visit * Reason Onset Date Comments Test Results 05/26/2023 Encounter Details Date Type Department Care Team Description 05/26/2023 Telephone Laboratory, [place] [address] [place] [address] Eduarda Ren PA-C [address] [place] [address] [place] [id number] Test Results Allergies No known active allergiesdocumented as of this encounter (statuses as of 05/26/2023) Medications Medication Sig Dispensed Refills Start Date End Date Status clobetasol propionate (TEMOVATE) 0.05 % creamIndications:De rmatitis Apply 2x daily (or more if itchy instead of scratching) to new and resolving rash on trunk/arms/legs until resolved, then when flaring 60 g 0 07/31/2019 Active Ventolin HFA 108 (90 Base) MCG/ACT Inhalation Aerosol Solution Inhale 2 Puffs by mouth every 4 hours as needed for Cough or Shortness of Breath. 8 g 1 05/19/2021 Active Doxycycline Hyclate 100 MG Oral Capsule Take 1 capsule by mouth daily as needed for malaria prophylaxis. Start 1-2 days prior to exposure, continue daily through exposure, and for 4 weeks after returning home. 60 Capsule 2 03/20/2022 Active documented as of this encounter (statuses as of 05/26/2023) Active Problems Problem Noted Date H/O dysplastic nevus 09/15/2021 Overview: Mildly atypical nevus (R lateral distal thigh, L central chest) DDD (degenerative disc disease), cervica l 02/24/2019 documented as of this encounter (statuses as of 05/26/2023) Resolved Problems Problem Noted Date Resolved Date COVID-19 05/07/2021 03/26/2023 Overview: 2020. No residual symptoms Tongue fissure 03/06/2020 03/06/2020 Chronic elbow pain, right 02/24/20192019 Rectal bleeding 12/24/2016 01/06/2018 Hemorrhoids 12/24/2016 02/24/2019 Traumatic partial tear of right biceps tendon 12/24/2016 Overview: Scheduled for surgery at [facility] on 07/12 documented as of this encounter (statuses as of 05/26/2023) Immunizations Name Administration Dates Next Due COVID-19 mRNA, LNP-s, No Pre serve, 2-Dose Series (appMobi) 07/15/2021,06/24/2021 Hep A - Hepatitis A (ped/adole, 1-18 Yrs) 1998 IPV - Polio Virus Vaccine (Inact) 04/30/2014 Meningococcal Conjugate Vaccine 02/24/2016 OPV - Polio Virus Vaccine (Oral) 04/30/2014 Season Influenza, Quad, PF, Adjuvanted, 65+ Yrs, IM (FLUAD) 07/26/2020 Seasonal Influenza Intranasal 07/10/2009 Seasonal Influenza Virus Vac cine, Unspecified Formulation 01/16/2019 Seasonal Influenza, PF, 6 mo ns & Above, IM , (Flulaval) 09/03/2021,10/29/2017 Seasonal Influenza, Quadriva lent, No Preserve, IM 06/28/2019,07/04/2015 Seasonal Influenza, Quadriva lent, No Preserve, Mdck 07/26/2020 Seasonal Influenza, Split, I IV3, With Preserve, Inj 06/26/2014,09/18/2013 TDAP (age 10 and older)(Boostrix) 02/24/2016 Typhoid Parenteral (> 10 Yrs) 11/27/2021, 018,04/30/2014 Yellow Fever Vaccine 04/30/2014 Zoster Vaccine Recombinant (Shingrix) 08/28/2020 ,03/06/2020 documented as of this encounter Social History Tobacco Use Types Packs/Day Years Used Date Smoking Tobacco: Former Cigarettes 1 20 Q uit: 07/11/1993 Smokeless Tobacco: Never Alcohol Use Standard Drinks/Week Comments Yes 5 (1 standard drink = 0.6 oz pur e alcohol) Alcohol Habits Answer Date Recorded How often do you have a drink containing alcohol ? 2-4 times a month 02/24/2019 How many drinks containing a lcohol do you have on a typical day when you are drinking? 3 or 4 02/24/2019 How often do you have six or more drinks on one occasion? Not asked Food Insecurity Answer Date Recorded Within the past 12 months, y ou worried that your food would run out before you got money to buy more. Never true 07/25/2019 Within the past 12 months, t he food you bought just didn't last and you didn't have money to get more. Never true 07/25/2019 Sex Assigned at Date Recorded Male 05/05/2023 9:15 AM E DT Job Start Date Occupation Industry Not on file Not on file Not on file Travel History Travel Start Travel End [place] 04/09/2023 05/08/2023 documented as of this encounter Miscellaneous Notes * Telephone Encounter - JAMES Johnson - 05/26/2023 9:51 AM EDT Hello- The radiologist discovered an unexpected or indeterminate finding on Andrew Arguello ([id number]) andasks that you review the following report. Study Type: US HEAD AND NECK Date of Study: 05/25/2023 IMPRESSION Heterogenous region in the right neck is of uncertain significance and may reflect normal variationor an underlying lesion. CT of the neck with contrast would provide better evaluation and should beconsidered. Please respond to this encounter to acknowledge receipt of this message and take responsibility to ensure this report is reviewed. Thank you, JAMES Johnson Client Service [facility] [place] documented in this encounter Plan of Treatment Upcoming Encounters Date Type Specialty Care Team Description 03/22/2024 Office Visit Family Medicine Rosalind Waters, [address] [place] [address] [place] [phone] 06/12/2024 Office Visit Dermatology Kiki Nava PA-C [address] [place] [address] [place] [id number] Scheduled Procedures Name Priority Associated Diagnoses Date/Ti me COLONOSCOPY FLEXIBLE PROXIMA L DIAGNOSTIC Recall History of colon polyps Family history of colon cancer Health Maintenance Due Date Last Done Comments Hepatitis B (1 of 3 - 3-dose series) 1966 HIV Screening 1981 Hepatitis C Screening 1984 COVID-19 Vaccine (3 - Pfizer series) 09/09/2021 07/15/2021, 06/24/2021 Depression Screening, Annual for Pts 12 and Over 03/07/2022 03/07/2021 Influenza Vaccine (FLU shot) (#1) 2023 09/03/2021, 07/26/2020, 07/26/2020, Additional history exists COLONOSCOPY-EVERY 3 YRS AGES 18-100 05/06/2024 05/06/2021, 05/06/2021, 01/11/2018, Additional history exists Diabetes Screening 12/19/2024 12/19/2021, 0 03/10/2021, 07/12/2018, Additional history exists DTaP,Tdap,and Td Vaccines (2 - Td or Tdap) 02/23/2026 02/24/2016 Lipid Panel 12/19/2026 12/19/2021, 02/19, 02/24/2016 MENINGOCOCCAL (MENACTRA/MENVEO) Aged Out 02/24/2016 No longer eligible based on patient's age to complete this topic Zoster Vaccines Completed 08/28/2020, 03/06/2020 GARDASIL-HPV IMMUNIZATION SERIES Aged Out No longer eligible based on patient's age to complete this topic Pneumococcal Vaccine: Pediatrics (0 to 5 Years) and At-Risk Patients (6 to 64 Years) Aged Out No longer eligible based on patient's age to complete this topic documented as of this encounter Medical Devices Not on filedocumented as of this encounter Care Teams [employer]man Relationship Specialty Start Date End Date Rosalind Waters[address] [place] [phone] PCP - General Internal Medicine 03/26/23 documented as of this encounter
--- OUTSIDE RECORDS SUMMARY | 2023-08-20 08:20 | External Medical Summary ---
Author Name Unknown Address Unknown Organization [id number]:[facility] [address] [place] [address] Laboratory Report Ordering Provider Test Date Status DANNA LUI 03/26/2023 09:47:15 Final Observation Date Value Abnormality Reference (Units ) Status PSA 03/26/2023 09:47:15 1.16 <3.10 (ng/ mL) Final Performing Location [facility] [address] [place] [address]
--- OUTSIDE RECORDS SUMMARY | 2023-08-20 08:20 | External Medical Summary | Summary of Care ---
Author Name Unknown Organization [facility] Address [address] [place] [address] Phone [phone] Care Team Providers Care Ramp Lead Name Role Phone Rosalind Waters DO Primary Care Provider Reason for Visit * Reason Comments Acute Encounter Details Date Type Department Care Team Description 05/25/2023 Office Visit Family Medicine [address] [address] Eduarda Ren PA-C [address] [place] [address] [place] [id number] Fullness of neck* Allergies No known active allergiesdocumented as of this encounter (statuses as of 05/25/2023) Medications Medication Sig Dispensed Refills Start Date [...] as of this encounter (statuses as of 05/25/2023) Active Problems Problem Noted Date H/O dysplastic nevus 09/15/2021 Overview: Mildly atypical nevus (R lateral distal thigh, L central chest) DDD (degenerative disc disease), cervica l 02/24/2019 documented as of this encounter (statuses as of 05/25/2023) Resolved Problems Problem Noted Date Resolved Date COVID-19 05/07/2021 03/26/2023 Overview: 2020. No residual symptoms Tongue fissure 03/06/2020 03/06/2020 Chronic elbow pain, right 02/24/20192019 Rectal bleeding 12/24/2016 01/06/2018 Hemorrhoids 12/24/2016 02/24/2019 Traumatic partial tear of right biceps tendon 12/24/2016 Overview: Scheduled for surgery at [facility] on 07/12 documented as of this encounter (statuses as of 05/25/2023) Immunizations Name Administration Dates Next Due COVID-19 mRNA, LNP-s, No Pre serve, 2-Dose Series (Urbita) 07/15/2021,06/24/2021 Hep A - Hepatitis A (ped/adole, [...] file Travel History Travel Start Travel End [place] 04/09/2023 05/08/2023 documented as of this encounter Last Filed Vital Signs Vital Sign Reading Time Taken Comments Blood Pressure 122/74 05/25/2023 9:02 AM EDT Pulse 60 05/25/2023 9:02 AM EDT Temperature 35.8 C (96.5 F) 05/25/2023 9:02 AM ED T Respiratory Rate 16 05/25/2023 9:02 AM EDT Oxygen Saturation - - Inhaled Oxygen Concentration - - Weight 89.4 kg (197 lb) 05/25/2023 9:02 AM EDT Height - - Body Mass Index 33.81 03/26/2023 9:02 AM EDT documented in this encounter Progress Notes * Eduarda Ren PA-C - 05/25/2023 9:06 AM EDT Nursing Notes: Myriam Deutsch RN 05/25/23 0905 Sign at exiting of workspace Pt here because he has no symmetry in his neck. Denies any pain, he states the right side looks larger Pt here today because he feels like his neck is asymmetric. Pt denies pain, swelling, fullness. He denies sore throat, post nasal drip, reflux issues. Pt denies issues with eating or drinking. Review of patient's allergies indicates: No Known Allergies Current Outpatient Medications Medication Sig Dispense Refill clobetasol propionate (TEMOVATE) 0.05 % cream Apply 2x daily (or more if itchy instead of scratching) to new and resolving rash on trunk/arms/legs until resolved, then when flaring 60 g 0 Ventolin HFA 108 (90 Base) MCG/ACT Inhalation Aerosol Solution Inhale 2 Puffs by mouth every 4 hours as needed for Cough or Shortness of Breath. 8 g 1 Doxycycline Hyclate 100 MG Oral Capsule Take 1 capsule by mouth daily as needed for malaria prophylaxis. Start 1-2 days prior to exposure, continue daily through exposure, and for 4 weeks after returning home. 60 Capsule 2 No current facility-administered medications for this visit. Past Medical History: Diagnosis Date Chronic elbow pain, right 02/24/2019 COVID-19 05/07/2021 Ganglion 06/26/2014 left foot Hemorrhoids 12/24/2016 History of carpal tunnel syndrome Status-post carpal tunnel release Myopia Since childhood Supraspinatus tendonitis left Tear of biceps muscle 06/2013 Tore right biceps rolling log for [employer] Traumatic partial tear of right biceps tendon 07/11/2013 Scheduled for surgery at [facility] on 07/12 Social History Socioeconomic History Marital status: Spouse name: Not on file Number of children: 0 Years of education: Not on file Highest education level: Not on file Occupational History 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 Employer: [employer] Tobacco Use Smoking status: Former Packs/day: 1.00 Years: 20.00 Pack years: 20.00 Types: Cigarettes Quit date: 07/11/1993 Years since quittin.8 Smokeless tobacco: Never Substance and Sexual Activity Alcohol use: Yes Alcohol/week: 5.0 standard drinks Types: 6 12 oz of beer per week Drug use: No Sexual activity: Yes Partners: Female Other Topics Concern Service Yes Blood Transfusions No Caffeine Concern No Occupational Exposure No Hobby Hazards Not Asked Sleep Concern Not Asked Stress Concern Not Asked Weight Concern Yes Special Diet Not Asked Back Care Not Asked Exercise Not Asked Bike Helmet Not Asked Seat Belt Not Asked Self-Exams Not Asked Social History Narrative 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 Social Determinants of Health Financial Resource Strain: Not on file Food Insecurity: Not on file Transportation Needs: Not on file Physical Activity: Not on file Stress: Not on file Social Connections: Not on file Intimate Partner Violence: Not on file Housing Stability: Not on file O:Blood pressure 122/74, pulse 60, temperature 35.8 C (96.5 F), resp. rate 16, weight 89.4 kg (197 lb). GENERAL: alert, healthy, and no distress NECK: supple, no adenopathy, no bruits, thyroid normal size, non-tender, without nodularity A:Fullness of neck (Primary) - US HEAD AND NECK; Future; Expected date: 06/01/2023 Will US neck. Any questions/problems, please call. If anything changes, worsens, develops new sx, please call [facility]. Follow Up: Return if symptoms worsen or fail to improve. Eduarda Ren PA-C documented in this encounter Nursing Notes * Myriam Deutsch RN - 05/25/2023 9:02 AM EDT Pt here because he has no symmetry in his neck. Denies any pain, he states the right side looks larger documented in this encounter Plan of Treatment Upcoming Encounters Date Type Specialty Care Team Description 05/25/2023 Imaging Radiology 03/22/2024 Office Visit Family Medicine Rosalind Waters DO [address] [place] [address] [place] [phone] 06/12/2024 Office Visit Dermatology Kiki Nava PA-C [address] [place] [address] [place] [id number] Scheduled Orders Name Type Priority Associated Diagnoses Orde r Schedule US HEAD AND NECK Medical Imaging Routine Fullness of neck Expected: 06/01/2023, Expires: 06/24/2024 Scheduled Procedures Name Priority Associated Diagnoses Date/Ti [...] Not on filedocumented as of this encounter Visit Diagnoses Diagnosis Fullness of neck- Primary Swelling, mass, or lump in head and neck documented in this encounter Care Teams Ramp Lead Relationship Specialty Start Date End Date Rosalind Waters, [address] [place] [id number] PCP - General Internal Medicine 03/26/23 documented as of this encounter
--- OUTSIDE RECORDS SUMMARY | 2023-08-20 08:20 | External Medical Summary | Summary of Care ---
Author Name Unknown Organization [facility] Address [address] [place] [address] Phone [phone] Care Team Providers Care Highway Inspector Name Role Phone Sania Clya DO Primary Care Provider [phone] Reason for Visit * Reason Comments Follow Up Pt here for full ski n exam. No new concerns. * Evaluate & Treat - Unlimited Visits (Within 10 days (routine)) - Authorized Specialty Diagnoses / Procedures Referred By Mary Lou ho Referred To Contact Dermatology Diagnoses Skin lesion H/O dysplastic nevus Sania Clay DO [address] [place] [address] [place] [address] Referral ID Status Reason Start Date Expiration Date Visits Requested Visits Authorized [id number] Authorized Specialty Services Required 03/26/2023 03/26/[phone] Encounter Details Date Type Department Care Team Description 05/19/2023 Office Visit Dermatology [address] [place] [address] Kiki Nava PA-C [address] [place] [address] [place] [address] H/O dysplastic nevus*; Lentigines; Multiple nevi; Skin exam, screening for cancer; Neoplasm of uncertain behavior of skin Allergies No known active allergiesdocumented as of this encounter (statuses as of 05/19/2023) Medications Medication Sig Dispensed Refills Start Date [...] as of this encounter (statuses as of 05/19/2023) Active Problems Problem Noted Date H/O dysplastic nevus 09/15/2021 Overview: Mildly atypical nevus (R lateral distal thigh) DDD (degenerative disc disease), cervica l 02/24/2019 documented as of this encounter (statuses as of 05/19/2023) Resolved Problems Problem Noted Date Resolved Date COVID-19 05/07/2021 03/26/2023 Overview: 2020. No residual symptoms Tongue fissure 03/06/2020 03/06/2020 Chronic elbow pain, right 02/24/20192019 Rectal bleeding 12/24/2016 01/06/2018 Hemorrhoids 12/24/2016 02/24/2019 Traumatic partial tear of right biceps tendon 12/24/2016 Overview: Scheduled for surgery at [facility] on 07/12 documented as of this encounter (statuses as of 05/19/2023) Immunizations Name Administration Dates Next Due COVID-19 mRNA, LNP-s, No Pre serve, 2-Dose Series (ESKY) 07/15/2021,06/24/2021 Hep A - Hepatitis A (ped/adole, [...] file Travel History Travel Start Travel End [place] 04/09/2023 05/08/2023 documented as of this encounter Patient Instructions * Patient Instructions* Kiki Nava PA-C - 05/19/2023 9:43 AM EDT SUNSCREEN USE AND SUN PROTECTION: 1. The best protection is sun avoidance. Seek shade if you can, especially between 10am to 4pm (peak sun hours). 2. Use sunscreen with an SPF (Sun Protection Factor - the number on most sunscreen bottles) of 30 or more that protects from Ultraviolet A (UVA) and Ultraviolet B (UVB) wavelength light (strongly recommend SPF 50). This is referred to as broad spectrum sun protection because it protects from most wa velengths in both spectrums of UVA and UVB light. Unfortunately, even though the protection is broad it is not complete, therefore making sun avoidance the best protection. UVB and UVA have both beenimplicated in causing skin cancers. Older sunscreens only protected from UVB and sunscreens with added UVA protection should contain Titanium dioxide, Zinc oxide, or Avobenzone. Other oil free, non-comedogenic lotion with SPF 30 or greater is fine. 3. Use sun protection if outside for 15 minutes or more. Apply 20-30 minutes before going out and reapply every 1-2 hours. No sunscreen is truly water ''proof'' and it will wash away with sweat, swimming and rubbing. 4. Wear tightly woven, loose fitting (cooler) long sleeved clothing, UV-blocking sun glasses (eyes need protection as well) and wide-brimmed hatwear (no straw hats with holes because light still getsthrough). Strongly recommended *Neutrogena Pure and Free Baby SPF 60 (have separate face and body lotions) orCeraVe AM facial lotion (with SPF 30). If looking for non toxic alternatives-look for non-syed particle zinc. Product examples; Think sport, Think baby, Paulino, [employer] botanicals, [employer], [place] baby. "Baby" products can be used for all ages. documented in this encounter Progress Notes * Bassam Leblanc MD - 05/19/2023 3:10 PM EDT I have seen and examined the patient via teledermatology review of chart note and photos with Kiki Nava PA-C. I have reviewed and agree with the assessment and plan. * Kiki Nava PA-C - 05/19/2023 9:40 AM EDT SUBJECTIVE: History of Present Illness: Andrew Arguello is a 57 year old male seen today for follow up of full skin exam. Previous office visit: 09/03/2021 Last attempted treatments include: bx x 1 (mildly atypical nevus) No new or changing lesions, per pt. Credit Checker Documentation Patient offered network analyst and declined. REVIEW OF SYSTEMS: SKIN: No other new or changing moles. HEME/LYMPH: No new or enlarging lumps or bumps. CONSTITUTIONAL: No nausea, vomiting, fevers, chills, diarrhea. No recent unintended weight loss, night sweats, appetite or malaise. RESP: negative MSK/EXT: Negative or as per HPI GI: negative CV: Negative or as per HPI Rest of systems are negative or as per HPI SKIN CANCER HX: Mildly atypical nevus (R lateral distal thigh) Reviewed, same day as visit, 0 [facility] Dermatology lab work(s)/pathology report(s) as well as those sent by referring provider prior to seeing pt. MEDICA TIONS: Current Outpatient Medications Medication Sig Dispense Refill [...] No current facility-administered medications for this visit. ALLERG IES: Patient has noknown allergies. OBJECT MELY: GEN: alert, no distress, appears oriented, pleasant, and cooperative. SKIN: Detailed exam of hair, face including lids and lips, neck, chest, abdomen, back, bilateral upper ext. (arm, hand, fingers), bilateral lower ext. (leg, foot, toes), palpation of scalp, fingernails, toenails, inguinal areas, groin (penis, scrotum and perineum), buttocks, and anus completed: 1A. L central chest-6x5mm light-medium brown irregular macule. 2. Face/trunk/bilat arms and legs-Some well defined light to medium brown homogenous stellate macules. 3. Trunk/bilat arms-About 80 total; 2-6mm light and light-medium brown macules. About 5 with slightly irregular borders and/or architecture. ASSESS MENT/PLAN: 1A. Nevus, r/o atypia on L central chest-Shave removal of the lesion noted above to remove and confirm diagnosis. The procedure, risks including but not limited to; (scarring, bleeding, infection, pain, and bruising), benefits, alternatives and expected outcomes were discussed with the patient, andobtained verbal consent from pt. Time out called. Patient identified, procedure verified, site identified and verified. Patient and staff present in agreement. Area prepped with alcohol and anesthetized using 2cc of 0.2% concentration of Ropivicaine. Shave of lesion performed. 20% AlCl and bandaging applied. Specimen sent to pathology. Patient instructed in routine post-op care and given wound care pamphlet. 2. Lentigines on face/trunk/bilat arms and legs-no tx needed, pt given reassurance. 3. Nevi on on face/trunk/bilat arms and legs-Approximately 5 atypical nevi but all uniform out of 80 total. None that are more atypical than the others that would need to be removed for pathologic confirmation, but would benefit from yearly skin checks to follow changes. Skin cancer brochure given at previous office visit (pt declined need for another) and ABCDE's discussed with patient. Annual full body skin examination (unless I recommended otherwise), self-examination, and sun protection (SPF 30+ daily to sun exposed areas, with reapplication every 1-2 hours when out in sun for long periods of time) advised and discussed. Recommended sooner follow up for new or changing lesions. These changes include rapid enlargement, changes in color or shape or symptoms, bleeding, or other concerns. The common features and behavior of non-melanoma skin cancers (e.g. BCC/SCC) as well as the ABCDEs and ugly duckling features of melanoma were also reviewed. Patient alone today. Photo(s) of #1-3 taken, pt verbally consented to having photo(s) taken. Follow-up: 1 year for full skin exam Contact patient via cell phone Ok to leave results on message: Yes Able to speak to none Applicable photos (if any) and chart reviewed by Dr. Bassam Leblanc. Presumed diagnoses, expected natural histories, and management options discussed with the patient at length. Questions were addressed and anticipatory guidance provided. They were instructed to contact me if additional questions, concerns, or problems develop in the interim. -There were no barriers to learning and no other pain was related to today's visit. The patient and/or person accompanying patient demonstrates understanding of the visit and treatment. Kiki Nava PA-C 05/19/2023 9:40 AM Ref: SANIA CLAY[[id number]] [address] [place] [address] [place] [address] (office) [phone] (fax) PCP: SANIA CLAY [address] [place] [address] [place] [address] [phone] documented in this encounter Nursing Notes * Kristine Tabares LPN - 05/19/2023 9:37 AM EDT Patient identified by full name and date of Chief Complaint Patient presents with Follow Up Pt here for full skin exam. No new concerns. documented in this encounter Plan of Treatment Upcoming Encounters Date Type Specialty Care Team Description 05/25/2023 Office Visit Family Medicine Eduarda Ren PA-C [address] [place] [address] [place] [address] 03/22/2024 Office Visit Family Medicine Sania Clay DO [address] [place] [address] [place] [phone] 06/12/2024 Office Visit Dermatology Kiki Nava PA-C [address] [place] [address] [place] [address] Pending Results Name Type Priority Associated Diagnoses Date /Time SURGICAL PATHOLOGY Pathology Routine Neoplasm of uncertain behavior of skin 05/19/2023 9:53 AM EDT Scheduled Procedures Name Priority Associated Diagnoses Date/Ti ar COLONOSCOPY FLEXIBLE PROXIMA L DIAGNOSTIC Recall History [...] Not on filedocumented as of this encounter Procedures Procedure Name Priority Date/Time Associated Diagnosis Comments DERM IMAGE (SITE) Routine 05/19/2023 Lentigines Multiple nevi Skin exam, screening for cancer H/O dysplastic nevus documented in this encounter Results * DERM IMAGE (SITE) (05/19/2023) 05/19/2023 Kiki Nava PA-C DIGITAL PHOTOG JESUS documented in this encounter Visit Diagnoses Diagnosis H/O dysplastic nevus- Primary Personal history of diseases of skin and subcutaneous tissue Lentigines Other dyschromia Multiple nevi Benign neoplasm of skin, site unspecified Skin exam, screening for cancer Screening for malignant neoplasm of the skin Neoplasm of uncertain behavior of skin documented in this encounter Care Teams Highway Inspector Relationship Specialty Start Date End Date Sania Clay, [address] [place] [address] PCP - General Internal Medicine 03/26/23 documented as of this encounter
--- OUTSIDE RECORDS SUMMARY | 2023-08-20 08:20 | External Medical Summary | Summary of Care ---
Author Name Unknown Organization [facility] Address [address] [place] [address] Phone [phone] Care Team Providers Care Forestry And Wildlife Manager Name Role Phone Rosalind Waters DO Primary Care Provider Reason for Visit * Reason Comments Outpatient Testing Encounter Details Date Type Department Care Team Description 03/26/2023 Laboratory Laboratory [address] [place] [phone] [place] [address] Screening for prostate cancer Allergies No known active allergiesdocumented as of this encounter (statuses as of 03/30/2023) Medications Medication Sig Dispensed Refills Start Date [...] as of this encounter (statuses as of 03/30/2023) Active Problems Problem Noted Date H/O dysplastic nevus 09/15/2021 Overview: Mildly atypical nevus (R lateral distal thigh) DDD (degenerative disc disease), cervica l 02/24/2019 documented as of this encounter (statuses as of 03/30/2023) Resolved Problems Problem Noted Date Resolved Date COVID-19 05/07/2021 03/26/2023 Overview: 2020. No residual symptoms Tongue fissure 03/06/2020 03/06/2020 Chronic elbow pain, right 02/24/20192019 Rectal bleeding 12/24/2016 01/06/2018 Hemorrhoids 12/24/2016 02/24/2019 Traumatic partial tear of right biceps tendon 12/24/2016 Overview: Scheduled for surgery at [facility] on 07/12 documented as of this encounter (statuses as of 03/30/2023) Immunizations Name Administration Dates Next Due COVID-19 mRNA, LNP-s, No Pre serve, 2-Dose Series (InPlace) 07/15/2021,06/24/2021 Hep A - Hepatitis A (ped/adole, 1-18 Yrs) 1998 IPV - Polio Virus Vaccine (Inact) 04/30/2014 Meningococcal Conjugate Vaccine 02/24/2016 OPV - Polio Virus Vaccine (Oral) 04/30/2014 Seasonal Influenza Intranasal 07/10/2009 Seasonal Influenza Virus Vac cine, Unspecified Formulation 01/16/2019 Seasonal Influenza, Quadriva lent, No Preserve, 6 Mons & Above, IM 09/03/2021,10/29/2017 Seasonal Influenza, Quadriva lent, No Preserve, Adjuvanted, 65+ Yrs, IM 07/26/2020 Seasonal Influenza, Quadriva lent, No Preserve, IM [...] true 07/25/2019 Sex Assigned at Date Recorded Not on file Job Start Date Occupation Industry Not on file Not on file Not on file documented as of this encounter Miscellaneous Notes * Result Encounter Note - Sheyla Silver RN - 03/30/2023 9:04 AM EDT Reason for Call: Outpatient Testing Contact: Letter Contact Type: Test Results Outcome: letter sent Face to face time spent with Patient (minutes): 0 Total Time including non face to face (minutes): 10 * Result Encounter Note - Sheyla Silver RN - 03/30/2023 9:04 AM EDT Normal letter sent documented in this encounter Plan of Treatment Upcoming Encounters Date Type Specialty Care Team Description 09/27/2023 [facility] [address] [facility] [address] 03/22/2024 Office Visit Family Medicine Rosalind Waters[address] [place] [address] Scheduled Procedures Name Priority Associated Diagnoses Date/Ti [...] Procedure Name Priority Date/Time Associated Diagnosis Comments PSA Routine 03/26/2023 9:47 AM EDT Screening for prostate cancer documented in this encounter Results * PSA (03/26/2023 9:47 AM EDT) PSA 1.16 <3.10 ng/mL 03/27/2023 3:26 AM EDT LABORATORY [facility] Blood Venous blood specimen / Unknown Venipuncture / Unknown 03/26/2023 9:47 AM EDT 03/26/2023 9:47 AM EDT Rosalind Waters DO LAB BLOOD ORDERABLES [facility] [address] [facility] [address] documented in this encounter Visit Diagnoses Diagnosis Screening for prostate cancer Special screening for malignant neoplasm of prostate documented in this encounter Care Teams Forestry And Wildlife Manager Relationship Specialty Start Date End Date Rosalind Waters DO [address] [place] [address] [place] [phone] PCP - General Internal Medicine 03/26/23 documented as of this encounter
--- OUTSIDE RECORDS SUMMARY | 2023-08-20 08:20 | External Medical Summary | Summary of Care ---
Author Name Unknown Organization [facility] Address [address] [place] [address] Phone [phone] Care Team Providers Care Sonar Subsystem Equipment Operator Name Role Phone Sania Clay DO Primary Care Provider [phone] Reason for Visit * Reason Comments Follow Up Pt here for full ski n exam. No new concerns. * Evaluate & Treat - Unlimited Visits (Within 10 days (routine)) - Authorized Specialty Diagnoses / Procedures Referred By Mary Lou ho Referred To Contact Dermatology Diagnoses Skin lesion H/O dysplastic nevus Sania Clay DO [address] [place] [address] [place] [address] Referral ID Status Reason Start Date Expiration Date Visits Requested Visits Authorized [id number] Authorized Specialty Services Required 03/26/2023 03/26/[phone] Encounter Details Date Type Department Care Team Description 05/19/2023 Office Visit Dermatology [address] [place] [phone] Kiki Nava PA-C [address] [place] [address] [place] [address] H/O dysplastic nevus*; Lentigines; Multiple nevi; Skin [...] tendon 12/24/2016 Overview: Scheduled for surgery at [facility] on 07/12 documented as of this encounter (statuses as of 05/19/2023) Immunizations Name Administration Dates Next Due COVID-19 mRNA, LNP-s, No Pre serve, 2-Dose Series (A Little Easier Recovery) 07/15/2021,06/24/2021 Hep A - Hepatitis A (ped/adole, [...] file Travel History Travel Start Travel End [place] 04/09/2023 05/08/2023 documented as of this encounter [...] Product examples; Think sport, Think baby, Paulino, [employer] botanicals, [employer], [place] baby. "Baby" products can be used for all ages. documented in this encounter Progress Notes * Kiki Nava PA-C - 05/19/2023 9:40 AM EDT SUBJECTIVE: History of Present Illness: Andrew Arguello is a 57 year old male seen today for follow up of full skin exam. Previous office visit: 09/03/2021 Last attempted treatments include: bx x 1 (mildly atypical nevus) No new or changing lesions, per pt. Crown Blocker Documentation Patient offered informix developer and declined. REVIEW OF SYSTEMS: SKIN: No [...] thigh) Reviewed, same day as visit, 0 [facility] Dermatology lab work(s)/pathology report(s) as well [...] message: Yes Able to speak to none judo [phone] Applicable photos (if any) and chart reviewed [...] Nava PA-C 05/19/2023 9:40 AM Ref: SANIA CLAY[[id number]] [address] [place] [address] [place] [address] (office) [phone] (fax) PCP: SANIA CLAY [address] [place] [address] [place] [address] [phone] documented in this encounter Nursing Notes * Kristine Tabares LPN - 05/19/2023 9:37 AM EDT Patient identified by full name and date of Chief Complaint Patient presents with Follow Up Pt here for full skin exam. No new concerns. documented in this encounter Plan of Treatment Upcoming Encounters Date Type Specialty Care Team Description 05/25/2023 Office Visit Family Medicine Eduarda Ren PA-C [address] [place] [address] [place] [phone] 03/22/2024 Office Visit Family Medicine Sania Clay DO [address] [place] [address] [place] [phone] 06/12/2024 Office Visit Dermatology Kiki Nava PA-C [address] [place] [address] [place] [address] Pending Results Name Type Priority Associated Diagnoses [...] as of this encounter Visit Diagnoses Diagnosis H/O dysplastic nevus- Primary Personal history of diseases of skin and subcutaneous tissue Lentigines Other dyschromia Multiple nevi Benign neoplasm of skin, site unspecified Skin exam, screening for cancer Screening for malignant neoplasm of the skin Neoplasm of uncertain behavior of skin documented in this encounter Care Teams Sonar Subsystem Equipment Operator Relationship Specialty Start Date End Date Sania Clay, [address] [place] [phone] PCP - General Internal Medicine 03/26/23 documented as of this encounter
[2023-08-20] MEDS ORDERED: ENOXAPARIN INJ 40 MG/0.4 ML SYR SQ SCH (09:00)
[2023-08-20] MEDS ORDERED: Nursing to Pharmacy Communication SCH (11:30)
--- NOTE | 2023-08-20 12:47 | Cardiology Consultation ---
Date of Consultation August 20, 2023 Assessment & Plan (1) Chest pain: (2) Abnormal ECG: (3) Former tobacco use: (4) Family history of premature CAD: Plan 58-year-old patient presents with atypical chest discomfort. High-sensitivity troponins within normal limits. Echocardiogram without regional wall motion abnormality. Transient, nonspecific ECG changes noted. Differential diagnosis includes musculoskeletal pain, GERD, pericarditis or pleurisy. He is currently pain-free with a minimally elevated CRP. No pericardial effusion on echocardiogram, although, right ventricle borderline enlarged. His D-dimer was negative making possibility of pulmonary embolus unlikely. Recommend exercise stress echocardiogram for further risk stratification. A bubble study will also be performed due to borderline RV enlargement to exclude intracardiac shunt. Further recommendations pending results of testing. Consider addition of low- dose statin therapy and aspirin due to family history of premature coronary disease. Addendum: Exercise stress echo negative for inducible ischemia at high workload. No anginal symptoms. No evidence of intracardiac shunt with injection of agitated saline contrast. Discussed possible addition of low-dose statin and aspirin given family history of premature coronary disease. Patient declines additional medical therapies at this time. No further inpatient cardiac testing or intervention recommended. Patient may be discharged from a cardiovascular perspective. History of Present Illness Reason for Consultation: chest pain Requesting Physician: Dr. Mendoza Attending Physician: Teresa Church DO History of Present Illness 58-year-old male present to the emergency department with chest and intrascapular discomfort. Discomfort began at rest in the evening. Moville moderate discomfort and attempted to sleep over the symptoms did not resolve. Discomfort worse with inspiration. He came to the ER for further evaluation and treatment. Given sublingual nitroglycerin and aspirin in exam room with subs equent relief of symptoms. Pain-free overnight. High-sensitivity troponin within normal limits. Initial ECG with possible inferior ST elevation otherwise nonspecific ST abnormality. Repeat ECG performed this a.m. demonstrates diffuse early repolarization. Preliminary review of bedside echocardiogram demonstrates normal LV wall motion with borderline right ventricular enlargement. No significant valvular pathology. No pericardial effusion. Patient currently resting comfortably. 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 Able to climb ladders and complete work duties without exertional chest pain or unusual shortness of breath. Reports stable functional capacity. Voices concern regarding family history of coronary disease including his father suffered a myocardial infarction in his 50s and a sister who in her early 50s. Takes no medications as an outpatient. Denies any personal history of coronary disease, congestive heart failure, diabetes, or rheumatic fever as a child. 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 Beliefs That Will Affect Care: None Current Living Situation: Spouse Other Information That Helps Us Care for You: No Feels Safe at Home: Yes Safety Concerns: Feels Safe At This Time Assistive Devices: None Review of Systems Review of Systems: All systems reviewed & are unremarkable except as noted in Subjective Physical Exam Constitutional: well nourished; no acute distress Respiratory: normal respiratory effort; no respiratory distress, no labored breathing and no retractions Auscultation: no crackles, no rales, no rhonchi and no wheezes Cardiovascular: Rate/Rhythm: regular rate and regular rhythm Heart Sounds: normal S1 and normal S2; no murmur Vessels: radial pulses present; no JVD and no carotid bruit Extremities: no edema Gastrointestinal (Abdomen): Inspection/Auscultation: abdomen normal to inspection and normal bowel sounds; abdomen not distended Percussion/P alpation: abdomen soft; abdomen nontender, no guarding and abdomen not rigid Neurologic: CN's II-XI intact bilaterally and moves all extremities; no focal motor deficits Results & Data Vital Signs (Past 12 Hours) Vital Signs Temp Pulse Pulse Resp BP BP Pulse Ox 08/20/23 12:21 36.6 C 74 18 138/86 98 08/20/23 09:00 88 08/20/23 08:40 36.6 C 77 18 98/63 L 95 08/20/23 08:01 118/77 08/20/23 08:01 78 13 93 08/20/23 08:00 86 19 94 08/20/23 07:54 77 08/20/23 07:30 78 17 93 08/20/23 07:15 84 12 94 08/20/23 07:15 118/80 08/20/23 07:00 86 22 94 08/20/23 07:00 116/81 08/20/23 05:00 92 H 20 112/76 95 08/20/23 02:50 94 H 08/20/23 02:22 90 20 160/112 H 96 08/20/23 01:08 36.4 C L 88 18 159/99 H 97 O2 Del Method 08/20/23 12:21 Room Air 08/20/23 09:00 08/20/23 08:40 Room Air 08/20/23 08:01 08/20/23 08:01 08/20/23 08:00 08/20/23 07:54 08/20/23 07:30 08/20/23 07:15 08/20/23 07:15 08/20/23 07:00 08/20/23 07:00 08/20/23 05:00 Room Air 08/20/23 02:50 08/20/23 02:22 Room Air 08/20/23 01:08 Room Air Laboratory Results Cardiac Enzymes 08/20/23 08/20/23 08/20/23 Range/Units 01:20 03:48 06:20 AST 23 (13-39) U/L Troponin I High Sens 3.9 3.6 3.7 (0-20) pg/ml Coagulation 08/20/23 Range/Units 01:20 PT 11.3 (9.0-12.0) Seconds APTT 29.9 (21.0-31.0) Seconds Lipids 08/20/23 Range/Units 06:20 Triglycerides 98 (0-150) mg/dl Cholesterol 163 (0-200) mg/dl HDL Cholesterol 39 mg/dl Cholesterol/HDL Ratio 4.2 (0-5) CBC 08/20/23 Range/Units 01:20 WBC 9.32 (4.8-10.8) K/ul RBC 5.77 (4.70-6.10) M/uL Hgb 16.9 (14.0-18.0) g/dl Hct 49.8 (42.0-52.0) % Plt Count 257 (130-400) K/uL Neut # (Auto) 5.77 (1.40-6.50) K/uL Lymph # (Auto) 2.26 (1.20-3.40) K/uL Emery # (Auto) 0.90 H (0.11-0.59) K/uL Eos # (Auto) 0.29 (0.00-0.50) K/uL Baso # (Auto) 0.05 (0.00-0.20) K/uL Comprehensive Metabolic Panel 08/20/23 Range/Units 01:20 Sodium 139 (136-145) mmol/L Potassium 3.9 (3.5-5.1) mmol/L Chloride 102 (98-107) mmol/L Carbon Dioxide 29 (21-32) mmol/L BUN 15 (6-23) mg/dl Creatinine 1.09 (0.6-1.4) mg/dl Glucose 105 H (70-99(Fasting)) mg/dl Calcium 9.5 (8.6-10.3) mg/dl AST 23 (13-39) U/L ALT 33 (7-52) U/L Alkaline Phosphatase 51 (34-104) U/L Total Protein 8.1 (6.0-8.3) gm/dl Albumin 4.6 (3.4-5.0) gm/dl Intake and Output 08/19/23 08/20/23 08/20/23 22:59 06:59 14:59 Intake Total 1000 / 1000 Balance 1000 / 1000 Intake: IV 1000 / 1000 Sodium Chloride 0.9% 1,000 ml @ 1000 / 1000 999 mls/hr IV .Q1H1M ONE Rx#: [id number] Other: Weight 86.9 kg 88 kg Weight Measurement Method Chair Scale Standing Scale Patient Weight 08/21/23 06:59 Weight 88 kg (1) Chest pain Chest pain type: other chest pain Qualified Code(s): R07.89 - Other chest pain
--- NOTE | 2023-08-20 15:25 | Discharge Summary ---
Discharge Summary Date of Service August 20, 2023 Admission HPI Per Admitting Provider History obtained from patient, family, and records. Medical history significant for past tobacco abuse. Last confinement 2018 under General Surgery service for elective hemorrhoidectomy. Patient was watching a football game last night when he experienced pleuritic substernal pain different from reflux. No cough, no SOB, no trauma. No previous episodes. Denies headache symptoms. Highest SBP of 160s documented at the ER. Chest pain relieved after aspirin and nitroglycerin administration at the ER. 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 until patient seen by cardiology in anticipation of ischemic work-up DVT prophylaxis. Lovenox subcu Full code Case discussed with Dr. Fontanez (hat marker) over the phone given possible ST elevations in the inferior leads on second EKG done at the ER. EKGs transmitted to him via [employer]. Possible pericarditis as per Dr. Fontanez. He recommends getting an urgent TTE and consulting [facility] cardiology in a.m. to evaluate patient. He will also contact Dr. Soto of [facility] in a.m. regarding patient. Text document was generated using magnetic.io voice recognition software. It may contain grammatical or spelling errors. Kindly contact undersigned for clarification of any documentation item in question. Updated Medication List Medication Instructions Recorded Confirmed Type No Known Home Medications 08/20/23 08/20/23 History Hospital Stay Data Consultations 08/20/23 04:42 ED Decision to Admit Stat 08/20/23 07:55 Consult Cardiology Routine Pending Results Patient Have Any Pending Studies at Discharge: No Discharge Instructions Given to Patient (Per Discharging Provider) Please discuss prophylactic medications with your primary care physician including baby (81mg) aspirin and/or statin therapy. Please followup with your primary care physician in one week to ensure you are still doing well after leaving the hospital. Also, if the pain returns, this will be the time to continue with an outpatient workup for cause. It was a pleasure taking care of you! Please call if you have any questions or problems. You can reach a [facility] hospitalist on duty at [facility] 24 hours a day by calling [phone]. Take care of yourself. Teresa Church, DO [facility]
--- NOTE | 2023-08-20 17:34 | Electrocardiogram Report ---
Test Reason : Blood Pressure : / mmHG Vent. Rate : 092 BPM Atrial Rate : 092 BPM P-R Int : 156 ms QRS Dur : 086 ms QT Int : 338 ms P-R-T Axes : 048 066 054 degrees QTc Int : 417 ms Normal sinus rhythm Nonspecific ST abnormality Abnormal ECG When compared with ECG of 01-NOV-2017 09:20, No significant change was found Confirmed by Yonny Hylton ([id number]) on 08/20/2023 5:34:02 PM Referred By: REFERRED SELF Confirmed By:Chance Hylton
--- NOTE | 2023-08-20 18:03 | Electrocardiogram Report ---
Test Reason : Blood Pressure : / mmHG Vent. Rate : 097 BPM Atrial Rate : 097 BPM P-R Int : 156 ms QRS Dur : 080 ms QT Int : 330 ms P-R-T Axes : 051 063 055 degrees QTc Int : 419 ms Normal sinus rhythm Nonspecific ST and T wave abnormality Abnormal ECG When compared with ECG of 20-AUG-2023 01:15, (unconfirmed) No significant change was found Confirmed by Yonny Hylton ([id number]) on 08/20/2023 6:03:04 PM Referred By: REFERRED SELF Confirmed By:Chance Hylton
[2023-08-21] MEDS ORDERED: ASPIRIN 81 MG ECTAB PO SCH (09:00)
== END 2023-08-20 15:53 | disposition home or self-care (01) ==
LOC: EDINP 01:06 → ED 01:06 → 2S 08:00

== ENCOUNTER 2025-04-26 05:11 | Inpatient (IN) ==
[2025-04-26 06:26] LABS: Hematocrit (blood only) 47.5 % (42.0-52.0); Hemoglobin 16.2 g/dl (14.0-18.0); Immature Granulocytes # (auto) 0.05 K/uL (0.01-0.20); Immature Granulocytes % (auto) 0.4 %; Mean Corpuscular Hemoglobin 29.2 pg (25.0-34.0); Mean Corpuscular Volume 85.7 fL (80.0-100.0); Platelet Count 243 K/uL (130-400); RDW Standard Deviation 38.3 fL (36.4-46.3); Red Blood Count 5.54 M/uL (4.70-6.10); White Blood Count 11.26 K/ul (4.8-10.8)
[2025-04-26 06:38] LABS: Anion Gap 8.0 (3-11); Bilirubin,Total 1.1 mg/dl (0.2-1.0); Calcium 9.0 mg/dl (8.6-10.3); Carbon Dioxide 24.0 mmol/L (21-32); Chloride 105.0 mmol/L (98-107); Potassium 3.9 mmol/L (3.5-5.1); Sodium 137.0 mmol/L (136-145)
[2025-04-26 06:44] LABS: Alanine Aminotransferase 22.0 U/L (7-52); Albumin Globulin Ratio 1.2 (0.9-2); Alkaline Phosphatase 52.0 U/L (34-104); Blood Urea Nitrogen 15.0 mg/dl (6-23); Creatinine Clr Calc Pharmacy 81.3 ml/min; Globulin 3.4 gm/dl (2.5-4.0); Glucose 97.0 mg/dl (70-99(Fasting)); Lipase 33.0 U/L (11-82); Total Protein 7.6 gm/dl (6.0-8.3)
--- NOTE | 2025-04-26 07:03 | Emergency Department Note ---
History of Present Illness General Chief complaint: Illness Stated complaint: WEAKNESS Time Seen by Provider: 04/26/25 05:55 Source: patient and family History of Present Illness Maximum Pain Intensity: 3 Patient is a 59-year-old male who presents for chest tightness that started last night around 3 AM when he got up to go to the bathroom. He describes tightness across his collarbones radiating to his back. No similar symptoms in the past. Worse when he takes a deep breath. Denies any fevers, chills, lightheadedness, dizziness, nausea, vomiting. Recent trip to [place] for work. No history of DVT/PE. No lower extremity swelling or calf pain. He is currently taking doxycycline as a preventative measure after recent trip to [facility] last month. No reported rash or tick bites. No sick contacts at home. Home Medications Medication Instructions Recorded Confirmed Type No Known Home Medications 08/20/23 08/20/23 History Allergies Allergy/AdvReac Type Severity Reaction Status Date / Time No Known Allergies Allergy Unverified 08/20/23 02:18 Past Med/Surg History Problem List (Updated 09/20/23 @ 00:08 by Med Suarez) Former tobacco use (Acute) Abnormal ECG (Acute) Chest pain (Acute) Grade IV internal hemorrhoids (Acute) S/P hemorrhoidectomy Medical History (Updated 04/26/25 @ 08:54 by Jose Ramon Chapman MD) Family history of premature CAD Social History Smoking Status: Former smoker Tobacco Type: Cigarettes Second Hand Exposure: No; Do You Dip or Chew Tobacco: No; Hx Alcohol Use: Yes Hx Substance Use: No Preferred Language: Zambian Communication Ability: Effective 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 Physical Exam Vital Signs Vital Signs - 24 hr 04/26/25 05:15 04/26/25 05:23 04/26/25 05:23 Temperature 37.1 C Temperature Source Oral Pulse Rate 73 Pulse Rate [Apical] Respiratory Rate 19 Respiratory Effort / Characteristics Non-Labored Spontaneous Non-Labored Respiratory Depth Normal Normal Respiratory Pattern Regular Blood Pressure 163/103 H Blood Pressure [Left Arm] Blood Pressure Mean 123 Blood Pressure Mean [Left Arm] Blood Pressure Position Semi-fowlers Blood Pressure Position [Left Arm] Pulse Oximetry 97 Oxygen Delivery Method Room Air Room Air Sepsis Recent Fever Within 48 Hours No Sepsis New/Unexplained Change in Mental Status No Sepsis Action Taken by Nursing No Action Required 04/26/25 06:07 04/26/25 06:29 04/26/25 08:04 Temperature Temperature Source Pulse Rate 76 Pulse Rate [Apical] 90 105 H Respiratory Rate 18 18 Respiratory Effort / Characteristics Non-Labored Spontaneous Respiratory Depth Normal Respiratory Pattern Blood Pressure Blood Pressure [Left Arm] 138/104 H 120/83 Blood Pressure Mean Blood Pressure Mean [Left Arm] 115 95 Blood Pressure Position Blood Pressure Position [Left Arm] Semi-fowlers Lying Pulse Oximetry 97 92 Oxygen Delivery Method Room Air Room Air Sepsis Recent Fever Within 48 Hours Sepsis New/Unexplained Change in Mental Status Sepsis Action Taken by Nursing See below. Constitutional WD/WN, vitals as above Respiratory normal respiratory effort, lungs clear to auscultation Cardiovascular Murmur noted on inhalation, no rub or gallop, No S3 noted Gastrointestinal (Abdomen) normal bowel sounds, soft, nontender, no hepatosplenomegaly Course Administered Medications Discontinued Medications Ioversol (Optiray 320 125ml) 66 ml IV ONCE ONE Stop: 04/26/25 07:25 Last Admin: 04/26/25 07:25 Dose: 66 ml Documented By: IVETTE Medical Decision Making Differential Diagnosis ACS, PE, bronchospasm, viral URI, pneumonia, myocarditis, pericarditis, pulmonary hypertension Medical Records Attestation: I reviewed the patient's medical records. Home Medications Current Medication List: was personally reviewed by me Laboratory Data Attestation: I reviewed the patient's lab results. 04/26/25 06:04 04/26/25 06:04 Lab Results 04/26/25 04/26/25 Range/Units 05:26 06:04 WBC 11.26 H (4.8-10.8) K/ul RBC 5.54 (4.70-6.10) M/uL Hgb 16.2 (14.0-18.0) g/dl Hct 47.5 (42.0-52.0) % MCV 85.7 (80.0-100.0) fL MCH 29.2 (25.0-34.0) pg MCHC 34.1 (32.0-36.0) g/dL RDW Std Deviation 38.3 (36.4-46.3) fL RDW Coeff of Araseli 12.3 (11.5-14.5) % Plt Count 243 (130-400) K/uL MPV 9.1 L (9.4-12.4) fL Immature Gran % (Auto) 0.4 % Neut % (Auto) 72.0 % Lymph % (Auto) 17.2 % Rabun % (Auto) 8.0 % Eos % (Auto) 1.9 % Baso % (Auto) 0.5 % Neut # (Auto) 8.10 H (1.40-6.50) K/uL Lymph # (Auto) 1.94 (1.20-3.40) K/uL Rabun # (Auto) 0.90 H (0.11-0.59) K/uL Eos # (Auto) 0.21 (0.00-0.50) K/uL Baso # (Auto) 0.06 (0.00-0.20) K/uL Immature Gran # (Auto) 0.05 (0.01-0.20) K/uL Sodium 137 (136-145) mmol/L Potassium 3.9 (3.5-5.1) mmol/L Chloride 105 (98-107) mmol/L Carbon Dioxide 24 (21-32) mmol/L Anion Gap 8 (3-11) BUN 15 (6-23) mg/dl Creatinine 0.98 (0.6-1.4) mg/dl Est Cr Clr Drug Dosing 81.3 ml/min eGFR 89.38 BUN/Creatinine Ratio 15.3 (10-20) Glucose 97 (70-99(Fasting)) mg/dl Calcium 9.0 (8.6-10.3) mg/dl Total Bilirubin 1.1 H (0.2-1.0) mg/dl AST 21 (13-39) U/L ALT 22 (7-52) U/L Alkaline Phosphatase 52 (34-104) U/L Troponin I High Sens 3.1 (0-20) pg/ml Total Protein 7.6 (6.0-8.3) gm/dl Albumin 4.2 (3.4-5.0) gm/dl Globulin 3.4 (2.5-4.0) gm/dl Albumin/Globulin Ratio 1.2 (0.9-2) Lipase 33 (11-82) U/L Adenovirus (PCR) Not Detected (NotDetected) B. pertussis DNA (PCR) Not Detected (NotDetected) B.parapertussis DNA PCR Not Detected (NotDetected) C. pneumoniae DNA (PCR) Not Detected (NotDetected) Coronavirus OC43 (PCR) Not Detected (NotDetected) Coronavirus HKU1 (PCR) Not Detected (NotDetected) Coronavirus 229E (PCR) Not Detected (NotDetected) SARS-CoV-2 (PCR) Not Detected (NotDetected) Coronavirus NL63 (PCR) Not Detected (NotDetected) Human Metapneumovir PCR Not Detected (NotDetected) Influenza Type A (PCR) Not Detected (NotDetected) Influenza Type B (PCR) Not Detected (NotDetected) M. pneumoniae (PCR) Not Detected (NotDetected) Parainfluenza 1 (PCR) Not Detected (NotDetected) Parainfluenza 2 (PCR) Not Detected (NotDetected) Parainfluenza 3 (PCR) Not Detected (NotDetected) Parainfluenza 4 (PCR) Not Detected (NotDetected) RSV (PCR) Not Detected (NotDetected) Entero/Rhino (PCR) Not Detected (NotDetected) Imaging Data Radiologist's Impression: Chest CTA 04/26/25 05:23 EXAM: CT angio chest PE protocol CLINICAL HISTORY: Chest Pain, eval for PE TECHNIQUE: Contiguous axial images were obtained from the neck base through the upper abdomen following intravenous administration of iodinated contrast material. Angiographic images were processed, 3D MIP images were acquired for interpretation. If IV contrast material had not been administered, the likelihood of detecting abnormalities relevant to the patient's condition would have been substantially decreased. Coronal and sagittal 3-D MIPs were likewise performed and indicated to increase the sensitivity of detectin diffuse clinically relevant pathology. CT scan was performed according to ALARA (as low as reasonable achievable). COMPARISON: None. FINDINGS: Adequate contrast bolus without evidence of pulmonary embolism. Main pulmonary artery measures 31mm in diameter. Right and left pulmonary arteries and their segmental branches appear prominent. Aberrant right subclavian artery is seen. The central airways are patent. The lungs are clear. No pleural effusion. The heart, aorta are of normal size and configuration. There are no appreciable coronary artery and aortic atherosclerotic calcifications. No pericardial effusion is identified. The thyroid is unremarkable. No mediastinal, hilar, or axillary lymphadenopathy is noted. No suspicious lytic or sclerotic osseous lesions are identified. IMPRESSION: 1. No evidence of pulmonary embolism. 2. Main pulmonary artery measures 31mm in diameter. Right and left pulmonary arteries and their segmental branches appear prominent. 2D Echo correlation is suggested for pulmonary artery hypertension. 3. Aberrant right subclavian artery is seen. Electronically signed by Jose Cruz Meyers 04-26-2025 08:34 AM ECG Data Attestation: I personally reviewed and interpreted this ECG as follows: Indication: + chest pain Rate (beats per minute): 73 Rhythm: + normal sinus ECG Intervals/blocks: + Normal QRS, + Normal QT and + Normal AL ECG [place]: + Normal ECG ST segments: + Normal ST segments Comparison ECG Date: from (08/20/2023) Change: no significant change Blood Pressure Blood Pressure Findings: Normal blood pressure MDM Narrative Patient is a 59-year-old male presents with chest pressure and discomfort that woke him from sleep. Hemodynamically stable on arrival. Noted to be slightly hypertensive compared to his baseline. EKG interpretation as seen above. No ischemic changes noted compared to prior. Recent travel to [place] therefore CTA was ordered to rule out PE. No PE noted on CTA however incidental finding of prominence of the pulmonary arteries concerning for pulmonary hypertension. Patient does have a new murmur on examination today. Plan for admission for ACS rule out and echocardiogram. Lab work was reviewed. Mild leukocytosis. No evidence of active infection. Cardiac enzymes within normal limits. Impression & Plan Chest pain Discharge Plan Visit Data Chief Complaint: Illness Stated Complaint: WEAKNESS ED Provider: Jose Ramon Chapman Discharge Problem: Chest pain Patient Disposition: Admitted As Inpatient Condition: Good Forms Stand Alone Forms: [employer] Prescriptions Prescriptions: No Action No Known Home Medications Referrals Referrals: Rosalind Waters DO [Primary Care Provider] -
[2025-04-26] MEDS: OPTIRAY 320 125ml IV ONE (07:25)
[2025-04-26 08:02] LABS: Chlamydia pneumoniae PCR Not Detected (NotDetected); Coronavirus 229E PCR Not Detected (NotDetected); Coronavirus CoV-2 (COVID19)PCR Not Detected (NotDetected); Coronavirus HKU1 PCR Not Detected (NotDetected); Coronavirus NL63 PCR Not Detected (NotDetected); Coronavirus OC43PCR Not Detected (NotDetected); Human Metapneumovirus PCR Not Detected (NotDetected); Parainfluenza Virus 1 PCR Not Detected (NotDetected); Parainfluenza Virus 2 PCR Not Detected (NotDetected); Parainfluenza Virus 3 PCR Not Detected (NotDetected); Parainfluenza Virus 4 PCR Not Detected (NotDetected); Respiratory Syncytial VirusPCR Not Detected (NotDetected); Rhinovirus/Enterovirus PCR Not Detected (NotDetected)
--- NOTE | 2025-04-26 08:34 | CT Scan Report ---
EXAM: CT angio chest PE protocol CLINICAL HISTORY: Chest Pain, eval for PE TECHNIQUE: Contiguous axial images were obtained from the neck base through the upper abdomen following intravenous administration of iodinated contrast material. Angiographic images were processed, 3D MIP images were acquired for interpretation. If IV contrast material had not been administered, the likelihood of detecting abnormalities relevant to the patient's condition would have been substantially decreased. Coronal and sagittal 3-D MIPs were likewise performed and indicated to increase the sensitivity of detectin diffuse clinically relevant pathology. CT scan was performed according to ALARA (as low as reasonable achievable). COMPARISON: None. FINDINGS: Adequate contrast bolus without evidence of pulmonary embolism. Main pulmonary artery measures 31mm in diameter. Right and left pulmonary arteries and their segmental branches appear prominent. Aberrant right subclavian artery is seen. The central airways are patent. The lungs are clear. No pleural effusion. The heart, aorta are of normal size and configuration. There are no appreciable coronary artery and aortic atherosclerotic calcifications. No pericardial effusion is identified. The thyroid is unremarkable. No mediastinal, hilar, or axillary lymphadenopathy is noted. No suspicious lytic or sclerotic osseous lesions are identified. IMPRESSION: 1. No evidence of pulmonary embolism. 2. Main pulmonary artery measures 31mm in diameter. Right and left pulmonary arteries and their segmental branches appear prominent. 2D Echo correlation is suggested for pulmonary artery hypertension. 3. Aberrant right subclavian artery is seen. Electronically signed by Jose Cruz Meyers 04-26-2025 08:34 AM
--- NOTE | 2025-04-26 09:21 | History & Physical Report ---
Date of Service April 26, 2025 Assessment & Plan (1) Chest pain: Plan 59 year old male with no significant PMH who presented to the ED on 04/26/2025 with chest pain and is admitted for work up of this. Chest pain Presented with pleuritic pain and chest tightness since 299 Differentials include pericarditis, musculoskeletal, ACS less likely Vitals stable except for slight tachycardia Labs unremarkable except for slight leukocytosis of 11K and slight elevation CRP 0.76 Lyme screen, babesia, tickborne peripheral smear pending UA pending Biofire negative Troponin negative x2 EKGx2 with ST elevation vs early repolarization in inferior and anterolateral leads CTA negative for PE but revealed prominent right and left pulmonary arteries concerning for pulmonary artery hypertension Echo obtained Cardiology consulted Malaria prophylaxis Continue doxycycline prescribed outpatient DVT Prophylaxis: SCDs for now Code Status: FULL CODE - As per discussion at bedside with the patient. PCP: Rosalind Waters Disposition: admit to PCU Patient seen in collaboration with Dr. Galeana. Please see addendum. I spent a total of 70 minutes coordinating, documenting and providing care for this patient excluding time spent in the performance of separately billed services or time spent by another provider/QHP. Admission and Anticipated Discharge Date Admission Date: 04/26/2025 History of Present Illness Chief Complaint: chest pain Primary Care Provider: Rosalind Waters, 59 year old male with no significant PMH who presented to the ED on 04/26/2025 with chest pain. Patient reports at 299 he developed chest tightness across his chest and extending up into his neck. Patient is unsure if the pain woke him from sleep. Took his blood pressure at home and noticed it was elevated in the 150s/100s, which prompted him to seek evaluation in the ED. Reports the chest pain has been constant since 299 with slight fluctuation in severity but mostly no improvement. Pain is worse when he takes a deep breath and improves when he leans forward. Denies radiation of pain anywhere except for feeling tightness in his neck as well. Received toradol and albuterol in the ED with no improvement. Notes he was at [facility] in August 2023 for chest pain, but reports that pain felt more like heartburn that wouldn't go away, whereas his current pain is with deep breaths. Workup at that time included a stress echo which was normal. He denies any recent illness, fatigue, weakness, cough, cold symptoms, SOB, abdominal pain, N/V/D, new rashes. He travels extensively for work - recently returned from [place] 5 days ago and from [place] yesterday. Is currently taking doxycycline for anti-malarial protection. Titers and vaccinations are all up to date. Does not often exert himself to notice any dyspnea with exertion but has been carrying out ADLs without difficulty. Denies any unusual activity or lifting. Allergies Allergy/AdvReac Type Severity Reaction Status Date / Time No Known Allergies Allergy Unverified 04/26/25 08:56 Home Medications Medication Instructions Recorded Confirmed Type albuterol sulfate 90 mcg/actuation 2 puff inhalation Q4H PRN 04/26/25 04/26/25 History aerosol inhaler Shortness Of Breath doxycycline hyclate 100 mg capsule 100 mg PO DAILY 04/26/25 04/26/25 History Past Med/Surg History Problem List (Updated 04/26/25 @ 13:15 by Geraldine Esteves PA-C) Pericarditis Abnormal ECG (Acute) Chest pain (Acute) Medical History (Updated 04/26/25 @ 13:15 by Geraldine Esteves PA-C) Degenerative disc disease, cervical Grade IV internal hemorrhoids Former tobacco use Family history of premature CAD Surgical History (Updated 04/26/25 @ 09:19 by ERNESTO Polk) S/P hemorrhoidectomy Family History (Updated 04/26/25 @ 09:19 by ERNESTO Polk) Mother Heart disease Hypertension Father Heart disease Stroke Social History (Updated 04/26/25 @ 09:20 by ERNESTO Polk) Smoking Status: Former smoker Tobacco Type: Cigarettes packs per day: 1; Cigarettes Per Day: 1 ppd for 20 years; Smoking End Date: 1992; Second Hand Exposure: No; Do You Dip or Chew Tobacco: No; Hx Alcohol Use: Yes Alcohol type: beer Hx Substance Use: No Preferred Language: Austrian Communication Ability: Effective Package Sealer Required: No Beliefs That Will Affect Care: None Current Living Situation: Spouse Other Information That Helps Us Care for You: No Feels Safe at Home: Yes Safety Concerns: Feels Safe At This Time Assistive Devices: Glasses Review of Systems Review of Systems: All systems reviewed & are unremarkable except as noted in HPI & below Physical Exam Physical Exam: General/Psych: WD/WN, sitting up in bed, NAD, conversing easily Head: normocephalic, atraumatic Eyes: normal inspection, PERRL, conjunctivae pink ENT: external ear and nose normal, oropharynx normal Neck: normal visual inspection, trachea midline Respiratory: normal respiratory effort, lungs clear to auscultation, no wheeze/rales/rhonchi, no accessory muscle use Cardiovascular: regular rate and rhythm, no murmur/rub/gallop, no JVD Extremities: no cyanosis or clubbing, normal peripheral pulses, no BLE edema Abdomen/GI: normal bowel sounds, soft, nontender Neurologic/MSK: A+Ox3, motor strength 5/5, moves all extremities Skin: normal color, warm and dry; erythematous maculopapular rash to left forearm Results & Data Results & Data Vital Signs (Past 12 Hours) Vital Signs Temp Pulse Pulse Resp BP BP Pulse Ox 04/26/25 08:04 105 H 18 120/83 92 04/26/25 06:29 90 18 138/104 H 97 04/26/25 06:07 76 04/26/25 05:23 04/26/25 05:15 37.1 C 73 19 163/103 H 97 O2 Del Method 04/26/25 08:04 Room Air 04/26/25 06:29 Room Air 04/26/25 06:07 04/26/25 05:23 Room Air 04/26/25 05:15 Room Air Laboratory Results Short CBC 04/26/25 Range/Units 06:04 WBC 11.26 H (4.8-10.8) K/ul Hgb 16.2 (14.0-18.0) g/dl Hct 47.5 (42.0-52.0) % Plt Count 243 (130-400) K/uL BMP 04/26/25 06:04 Sodium 137 Potassium 3.9 Chloride 105 Carbon Dioxide 24 BUN 15 Creatinine 0.98 Glucose 97 Calcium 9.0 Liver Function 04/26/25 Range/Units 06:04 Total Bilirubin 1.1 H (0.2-1.0) mg/dl AST 21 (13-39) U/L ALT 22 (7-52) U/L Alkaline Phosphatase 52 (34-104) U/L Albumin 4.2 (3.4-5.0) gm/dl I have independently reviewed and interpreted patient's admitting labs including CBC, CMP, troponin Diagnostic Findings Chest CTA 04/26/25 05:23 EXAM: CT angio chest PE protocol CLINICAL HISTORY: Chest Pain, eval for PE TECHNIQUE: Contiguous axial images were obtained from the neck base through the upper abdomen following intravenous administration of iodinated contrast material. Angiographic images were processed, 3D MIP images were acquired for interpretation. If IV contrast material had not been administered, the likelihood of detecting abnormalities relevant to the patient's condition would have been substantially decreased. Coronal and sagittal 3-D MIPs were likewise performed and indicated to increase the sensitivity of detectin diffuse clinically relevant pathology. CT scan was performed according to ALARA (as low as reasonable achievable). COMPARISON: None. FINDINGS: Adequate contrast bolus without evidence of pulmonary embolism. Main pulmonary artery measures 31mm in diameter. Right and left pulmonary arteries and their segmental branches appear prominent. Aberrant right subclavian artery is seen. The central airways are patent. The lungs are clear. No pleural effusion. The heart, aorta are of normal size and configuration. There are no appreciable coronary artery and aortic atherosclerotic calcifications. No pericardial effusion is identified. The thyroid is unremarkable. No mediastinal, hilar, or axillary lymphadenopathy is noted. No suspicious lytic or sclerotic osseous lesions are identified. IMPRESSION: 1. No evidence of pulmonary embolism. 2. Main pulmonary artery measures 31mm in diameter. Right and left pulmonary arteries and their segmental branches appear prominent. 2D Echo correlation is suggested for pulmonary artery hypertension. 3. Aberrant right subclavian artery is seen. Electronically signed by Jose Cruz Meyers 04-26-2025 08:34 AM ECG Additional Comments: I have independently reviewed and interpreted patient's admitting EKG which revealed: Code Status & VTE Plan Code Status Full Code Supervising Physician Co-Signing Physician Notes I have seen and discussed the case with the collaborating advanced practitioner. I agree with the above H&P. I have reviewed and confirmed the patients medical history, the findings on physical examination, and the patients diagnosis and treatment plan with Brandon OROZCO and agree with the information documented. In short, Mr. Arguello is a 59 yo gentleman who recently returned from [facility] admitted for atypical pleuritic chest pain. Denies any recent viral illness. Reports recent MMR vaccine in February. No recent COVID vaccine. Smoked for 20 years, quit in 1991. No WARNER, palpitations, or other acute concerns. Pain is positional, better when sitting up right. Spreads across center of chest, sharp with inhalataion. CT PE negative. EXAM with no murmurs or apparent rubs. Labs with mild leukocytosis and mildly elevated CRP biofire negative #Atypical chest pain low suspicion for ACS, some concern for possible pericarditis given symptoms, however, very mild crp and mild wbc at 11 no fevers, but chills reported troponin negative monitor on tele ECHO pending Cards consult Start ibuprofen 600mg TID for now and colcichine until cards recommendations #Malaria prophylaxis continue doxy daily parasite screen rest of plan as above I spent a total of 25 minutes coordinating, documenting, and providing care for this patient excluding time spent in the performance of separately billed services. All of the aforementioned completed outside of collaborating with the assigned advanced practitioner for a full treatment plan. I have reviewed the advanced practitioner's documentation, and I agree with, and take responsibility for the plan of care
[2025-04-26] MEDS: KETOROLAC TROMETHAMINE 15 MG/ML VIAL IV ONE (10:09)
[2025-04-26] MEDS: ALBUT/IPRATROP 3MG/0.5MG NEB 3 ML VIAL NEB STA (10:10)
[2025-04-26] MEDS ORDERED: IBUPROFEN 600 MG TAB PO PRN (10:14)
--- NOTE | 2025-04-26 11:31 | Cardiology Consultation ---
Date of Consultation April 26, 2025 Assessment & Plan (1) Pericarditis: (2) Chest pain: (3) Abnormal ECG: Plan Patient presenting with chest tightness radiating across his chest, also pleuritic chest pain with deep breaths. Worse with laying supine, improved with leaning forward, symptoms consistent with pericarditis. Work up in ER - Troponin HS x2 WNL, WBC was minimally elevated, respiratory panel was negative. CRP was minimally elevated but lower than prior evaluation in 2022. ESR within normal limits. BP initially elevated but now improved EKG at time of evaluation demonstrating NSR with ST elevation vs early repolarization in inferior leads, slightly in V5/V6 also consistent with acute pericarditis. Chest CTA was negative for PE, findings possible for pulm hypertension Echo completed demonstrating normal LVEF, no wall motion abnormalities and no pulm hypertension Toradol prescribed in the ER. No improvement per patient. Case discussed with Dr. Smith Findings and symptoms consistent with acute pericarditis. Etiology uncertain. Lyme and anaplasmosis screen pending. Recommendations: Repeat troponin HS now just to verify no ACS given ST elevation in inferior leads on EKG. Start Ibuprofen 600 mg TID - first dose now Start Protonix 40 mg BID for GI protection Give one dose of IV solumedrol 60 mg now Start colchicine 0.6 mg - 1 tab now and then Q AM I spent a total of 70 minutes on the date of service in preparation, delivery, and documentation of the care provided to this patient, excluding any time spent in the performance of separately billed services. Geraldine Esteves PA-C Department of Cardiology, [facility] This chart was completed in part utilizing Speech Voice Recognition Software. Grammatical errors, random word insertions, pronoun errors, and incomplete sentences are an occasional consequence of this system due to software limitations, ambient noise, and hardware issues. Any formal questions or concerns about the content, text, or information contained within the body of this dictation should be directly addressed to the provider for clarification. Supervising Physician Co-Signing Physician Notes Attending attestation: Case reviewed with the advanced practitioner. I have personally performed a history and physical examination on the patient. I have reviewed the advanced practitioner's documentation on the date of service referenced in note, and I agree with, and take responsibility for the plan of care. Subjective: Patient with chest discomfort/chest tightness worse with lying supine, improved with leaning forward. Worse with deep inspiration rather than with aerobic activity. Exam: Cardiovascular regular rhythm, no murmurs, no gallops, no rubs, no edema Data: Telemetry reveals sinus rhythm. EKG performed 04/26/2025 at 12:18 PM revealed normal sinus rhythm with somewhat diffuse J-point elevation suggestive of pericarditis. Compared to the previous tracing, the J-point elevation in the inferior leads is more prominent. High-sensitivity troponin negative x 3, most recent measurement today at 12:48 PM. Erythrocyte sedimentation rate normal. C-reactive protein only minimally elevated at 0.76 mg/dL. Echocardiogram performed today reveals normal LVEF, no regional wall motion abnormalities, right ventricular chamber size and systolic function normal, no Doppler evidence to suggest pulmonary hypertension Patient presented with chest discomfort in August,, both study negative for interatrial shunt. Extra stress echocardiogram negative for inducible ischemia at high workload. Impression/ Plan: Chest discomfort, suggestive of pericarditis -Proceed with colchicine, ibuprofen, Solu-Medrol 60 mg IV x 1, proton pump inhibitor therapy. -Noted previous concern of borderline right ventricular chamber enlargement in August 2023 with negative bubble study at that time. The right ventricle was suboptimally visualized but appears to be normal in size and systolic function. CTA negative for pulmonary embolism, mildly enlarged pulmonary artery noted radiology report. -There is also an incidental finding in the CT angiogram of apparent origin of the right subclavian artery which originates from the descending aorta and traverses behind the esophagus. If cardiac catheterization became indicated in the future, would therefore avoid right radial approach. I spent a total of 30 minutes coordinating, documenting, and providing care for this patient excluding time spent in the performance of separately billed services or time spent by another provider. Alvaro Smith, History of Present Illness Reason for Consultation: Chest pain Requesting Physician: Keyon Vazquez Attending Physician: Dr. Smith History of Present Illness Patient is a 59 year old male admitted to [facility] with complaints of chest pain described as a tightness/sharp pain radiating across his chest, worse with deep inspiration. Improved by leaning forward. Symptoms began around 3:00 AM when patient awakened to use the restroom. He noticed the discomfort. Thought it was how he was laying and tried to reposition. Symptoms persisted for awhile and he came to the ER. On route to the ER, patient reports that leaning forward aided his symptoms. In ER, EKG was completed but not able to be reviewed at this time. Reports from ER physician was that EKG was non ischemic. Nursing staff called the ER to have EKG transmitted. He was treated with IV Toradol but felt his symptoms did not improve. HS troponin negative x2 since admission. Minimally elevated CRP, but lower than past evaluation. ESR was normal at 9. He has been traveling frequently for work, flying around the world and country. Recently was in [place] for 2 weeks and returned last week. Then flew to [facility] and returned yesterday. He is on doxycycline until the end of April due to malaria prophylaxis. Chest CTA negative for PE. Did show signs of possible pulm hypertension. No calf pain or swelling. Lipase unremarkable. BP was elevated initially in the ER, but improved since admission without therapy. No recent fever, cough, chills. No orthopnea, PND or edema. Patient denies recent exertional chest pain. He does have a family history of premature CAD. His father had multiple OK's and CABG age 40's. age 60s Prior tobacco use noted but quit in the . At time of consult, patient resting in bed. No apparent distress, but reports ongoing chest tightness persisting. No improvement with therapy in the ER. No SOB. No diaphoresis. No n/v/d. No cough. No orthopnea, PND or edema. No fever, cough, chills. History includes: 1. Prior atypical/pleuritic chest pain in 2022 - negative stress echo at that time. 2. Mild RV enlargement on echo noted in 2022 - negative bubble study 3. Family history of premature CAD 4. Prior tobacco abuse 5. Borderline dyslipidemia - declining therapy. Allergies Allergy/AdvReac Type Severity Reaction Status Date / Time No Known Allergies Allergy Unverified 04/26/25 08:56 Home Medications Medication Instructions Recorded Confirmed Type albuterol sulfate 90 mcg/actuation 2 puff inhalation Q4H PRN 04/26/25 04/26/25 History aerosol inhaler Shortness Of Breath doxycycline hyclate 100 mg capsule 100 mg PO DAILY 04/26/25 04/26/25 History Patient History Medical History (Updated 04/26/25 @ 13:15 by Geraldine Esteves PA-C) Degenerative disc disease, cervical Grade IV internal hemorrhoids Former tobacco use Family history of premature CAD Surgical History (Updated 04/26/25 @ 09:19 by ERNESTO Polk) S/P hemorrhoidectomy Family History (Updated 04/26/25 @ 09:19 by ERNESTO Polk) Mother Heart disease Hypertension Father Heart disease Stroke Social History (Updated 04/26/25 @ 09:20 by ERNESTO Polk) Smoking Status: Former smoker Tobacco Type: Cigarettes packs per day: 1; Cigarettes Per Day: 1 ppd for 20 years; Smoking End Date: 1992; Second Hand Exposure: No; Do You Dip or Chew Tobacco: No; Hx Alcohol Use: Yes Alcohol type: beer Hx Substance Use: No Preferred Language: Kinyarwanda Communication Ability: Effective Repulping Supervisor Required: No Beliefs That Will Affect Care: None Current Living Situation: Spouse Other Information That Helps Us Care for You: No Feels Safe at Home: Yes Safety Concerns: Feels Safe At This Time Assistive Devices: Glasses Review of Systems Review of Systems: All systems reviewed & are unremarkable except as noted in HPI & below Physical Exam Constitutional: WD/WN, vitals as above well nourished; no acute distress Neck: trachea midline, no thyromegaly Respiratory: normal respiratory effort, lungs clear to auscultation Cardiovascular: Rate/Rhythm: regular rate and regular rhythm Heart Sounds: no murmur Vessels: no JVD Extremities: no edema Gastrointestinal (Abdomen): normal bowel sounds, soft, nontender, no hepatosplenomegaly Musculoskeletal: no cyanosis or clubbing, extremities motor strength 5/5 Skin: no rashes, warm and dry Neurologic: PERRL, EOMI, accommodation nl, no face palsy, no dysarthria Psychiatric: A+Ox3, euthymic affect Results & Data Vital Signs (Past 12 Hours) Vital Signs Temp Pulse Pulse Resp BP BP Pulse Ox 04/26/25 10:00 97 H 15 121/76 97 04/26/25 09:46 106 H 04/26/25 09:45 102 H 14 121/76 95 04/26/25 09:12 106 H 21 98/75 L 95 04/26/25 08:57 106 H 23 120/83 95 04/26/25 08:04 105 H 18 120/83 92 04/26/25 08:00 108 H 21 92 04/26/25 07:39 104 H 18 138/104 H 92 04/26/25 06:29 90 18 138/104 H 97 04/26/25 06:24 91 H 19 98 04/26/25 06:07 76 04/26/25 06:00 88 14 98 04/26/25 05:23 04/26/25 05:18 82 16 163/103 H 97 04/26/25 05:15 37.1 C 73 19 163/103 H 97 O2 Del Method 04/26/25 10:00 04/26/25 09:46 04/26/25 09:45 04/26/25 09:12 04/26/25 08:57 04/26/25 08:04 Room Air 04/26/25 08:00 04/26/25 07:39 04/26/25 06:29 Room Air 04/26/25 06:24 04/26/25 06:07 04/26/25 06:00 04/26/25 05:23 Room Air 04/26/25 05:18 04/26/25 05:15 Room Air Laboratory Results Cardiac Enzymes 04/26/25 04/26/25 Range/Units 06:04 09:03 AST 21 (13-39) U/L Troponin I High Sens 3.1 4.0 (0-20) pg/ml CBC 04/26/25 Range/Units 06:04 WBC 11.26 H (4.8-10.8) K/ul RBC 5.54 (4.70-6.10) M/uL Hgb 16.2 (14.0-18.0) g/dl Hct 47.5 (42.0-52.0) % Plt Count 243 (130-400) K/uL Neut # (Auto) 8.10 H (1.40-6.50) K/uL Lymph # (Auto) 1.94 (1.20-3.40) K/uL Limestone # (Auto) 0.90 H (0.11-0.59) K/uL Eos # (Auto) 0.21 (0.00-0.50) K/uL Baso # (Auto) 0.06 (0.00-0.20) K/uL Comprehensive Metabolic Panel 04/26/25 Range/Units 06:04 Sodium 137 (136-145) mmol/L Potassium 3.9 (3.5-5.1) mmol/L Chloride 105 (98-107) mmol/L Carbon Dioxide 24 (21-32) mmol/L BUN 15 (6-23) mg/dl Creatinine 0.98 (0.6-1.4) mg/dl Glucose 97 (70-99(Fasting)) mg/dl Calcium 9.0 (8.6-10.3) mg/dl AST 21 (13-39) U/L ALT 22 (7-52) U/L Alkaline Phosphatase 52 (34-104) U/L Total Protein 7.6 (6.0-8.3) gm/dl Albumin 4.2 (3.4-5.0) gm/dl Intake and Output 04/25/25 04/26/25 04/26/25 22:59 06:59 14:59 Other: Weight 86 kg Weight Measurement Method Built in [facility] Diagnostic Findings Telemetry reviewed: NSR in the 's. No EKG reviewed from ER - Not able to be reviewed personally. Call to ER to request download Repeat EKG at 12:18: NSR with ST elevation in inferior leads and V5 and V6- early repolarization? vs pericarditis. He had similar early repolarization findings in 2022. Echo completed this morning reviewed: Mild concentric LVH Normal LVEF at 60-65% RV is not well visualized but appears normal based in s ize and systolic function on qualitative assessment. No significant TR No pulm hypertension per Doppler findings Grade I diastolic dysfunction No pericardial effusion Chest xray reviewed: IMPRESSION: No acute chest disease. Chest CTA report reviewed dated 04/26/25: IMPRESSION: 1. No evidence of pulmonary embolism. 2. Main pulmonary artery measures 31mm in diameter. Right and left pulmonary arteries and their segmental branches appear prominent. 2D Echo correlation is suggested for pulmonary artery hypertension. 3. Aberrant right subclavian artery is seen. Prior testing reviewed: Exercise stress echo report reviewed from 08/20/2023: Normal stress echo without wall motion abnormalities or inducible ischemia. Above average exercise tolerance No evidence of intracardiac shunt with injection of agitated saline contrast Echo report reviewed dated 08/20/23: LVEF 60-65% Normal wall motion No pericardial effusion Borderline RV enlargement. RV systolic function is normal Medications Administered Current Inpatient Medications Doxycycline Hyclate (Doxycycline Hyclate 100 Mg Cap) 100 mg PO DAILY JASON Stop: 05/07/25 08:59 Ibuprofen (Ibuprofen 600 Mg Tab) 600 mg PO TID [facility] Stop: 05/26/25 13:59 Pantoprazole Sodium (Pantoprazole 40 Mg Tab) 40 mg PO BID [facility] Stop: 05/26/25 20:59 PG Care Time/CCT Total # of Minutes Spent Total Time Spent with Patient: Total time spent is greater than 50% in coordination of care (as documented) at patient's floor/unit and/or counseling patient: 70 Coding Level of Care Code 41979 OFFICE CONSULT LVL M Diagnoses Acute pericarditis, unspecified type I30.9 Chronicity: acute Pericarditis type: unspecified type Chest pain on breathing R07.1 Chest pain type: chest pain on breathing Abnormal ECG R94.31 Time Spent (min) 100 Comment 70 minutes spent by Fidelina Esteves PA-C, [address] Smith (1) Pericarditis Chronicity: acute Pericarditis type: unspecified type Qualified Code(s): I30.9 - Acute pericarditis, unspecified (2) Chest pain Chest pain type: chest pain on breathing Qualified Code(s): R07.1 - Chest pain on breathing
[2025-04-26 12:47] LABS: Appearance Urine Clear (Clear); Glucose Urine UA Negative (Negative)
[2025-04-26] MEDS: COLCHICINE 0.6 MG TAB PO SCH (13:20)
[2025-04-26] MEDS ORDERED: IBUPROFEN 600 MG TAB PO SCH (14:00)
[2025-04-26] MEDS: IBUPROFEN 600 MG TAB PO SCH (14:14)
--- NOTE | 2025-04-26 17:40 | Electrocardiogram Report ---
Test Reason : Blood Pressure : */* mmHG Vent. Rate : 79 BPM Atrial Rate : 79 BPM P-R Int : 152 ms QRS Dur : 84 ms QT Int : 370 ms P-R-T Axes : 42 62 61 degrees QTcB Int : 424 ms Normal sinus rhythm ST elevation, consider early repolarization, pericarditis, or injury Abnormal ECG When compared with ECG of 20-Aug-2023 09:24, No significant change was found Confirmed by Yonny Hylton ([id number]) on 04/26/2025 5:39:54 PM Referred By: REFERRED SELF Confirmed By: Yonny Hylton
--- NOTE | 2025-04-26 17:41 | Electrocardiogram Report ---
Test Reason : Blood Pressure : */* mmHG Vent. Rate : 76 BPM Atrial Rate : 76 BPM P-R Int : 154 ms QRS Dur : 86 ms QT Int : 366 ms P-R-T Axes : 31 50 50 degrees QTcB Int : 411 ms Normal sinus rhythm Early repolarization Normal ECG When compared with ECG of 26-Apr-2025 12:13, (unconfirmed) No significant change was found Confirmed by Yonny Hylton ([id number]) on 04/26/2025 5:40:29 PM Referred By: REFERRED SELF Confirmed By: Yonny Hylton
[2025-04-27 06:07] LABS: Hematocrit (blood only) 45.0 % (42.0-52.0); Hemoglobin 15.7 g/dl (14.0-18.0); Mean Corpuscular Hemoglobin 29.7 pg (25.0-34.0); Mean Corpuscular Volume 85.1 fL (80.0-100.0); Platelet Count 286 K/uL (130-400); RDW Standard Deviation 37.7 fL (36.4-46.3); Red Blood Count 5.29 M/uL (4.70-6.10); White Blood Count 20.87 K/ul (4.8-10.8)
[2025-04-27 06:21] LABS: Anion Gap 8.0 (3-11); Blood Urea Nitrogen 30.0 mg/dl (6-23); Calcium 9.4 mg/dl (8.6-10.3); Carbon Dioxide 21.0 mmol/L (21-32); Chloride 107.0 mmol/L (98-107); Creatinine Clr Calc Pharmacy 66.1 ml/min; Glucose 166.0 mg/dl (70-99(Fasting)); Potassium 4.9 mmol/L (3.5-5.1); Sodium 136.0 mmol/L (136-145)
[2025-04-27 07:46] VITALS: RESP 18
[2025-04-27] MEDS: DOXYCYCLINE HYCLATE 100 MG CAP PO SCH (08:06)
--- NOTE | 2025-04-27 11:19 | Cardiology Progress Note ---
Date of Service April 27, 2025 Assessment & Plan (1) Pericarditis: (2) Chest pain: (3) Abnormal ECG: Plan 04/26/25 Patient presenting with chest tightness radiating across his chest, also pleuritic chest pain with deep breaths. Worse with laying supine, improved with leaning forward, symptoms consistent with pericarditis. Work up in ER - Troponin HS x2 WNL, WBC was minimally elevated, respiratory panel was negative. CRP was minimally elevated but lower than prior evaluation in 2022. ESR within normal limits. BP initially elevated but now improved EKG at time of evaluation demonstrating NSR with ST elevation vs early repolarization in inferior leads, slightly in V5/V6 also consistent with acute pericarditis. Chest CTA was negative for PE, findings possible for pulm hypertension Echo completed demonstrating normal LVEF, no wall motion abnormalities and no pulm hypertension Toradol prescribed in the ER. No improvement per patient. Case discussed with Dr. Smith Findings and symptoms consistent with acute pericarditis. Etiology uncertain. Lyme and anaplasmosis screen pending. Recommendations: Repeat troponin HS now just to verify no ACS given ST elevation in inferior leads on EKG. Start Ibuprofen 600 mg TID - first dose now Start Protonix 40 mg BID for GI protection Give one dose of IV solumedrol 60 mg now Start colchicine 0.6 mg - 1 tab now and then Q AM 04/27/25: Patient with interval improvement in his pleuritic chest pain with treatments Recommend Ibuprofen 400 mg TID x for 7 days Recommend colchicine 0.6 mg daily for 3 months Recommend Protonix 40 mg BID for 7 days (while taking ibuprofen), then 40 mg daily for 3 months while taking colchicine. will arrange 2-4 week f/u at cardiology office. Stable for discharge. Case discussed with Dr. Smith. I spent a total of 35 minutes on the date of service in preparation, delivery, and documentation of the care provided to this patient, excluding any time spent in the performance of separately billed services. Geraldine Esteves PA-C Department of Cardiology, [facility] This chart was completed in part utilizing Speech Voice Recognition Software. Grammatical errors, random word insertions, pronoun errors, and incomplete sentences are an occasional consequence of this system due to software limitations, ambient noise, and hardware issues. Any formal questions or concerns about the content, text, or information contained within the body of this dictation should be directly addressed to the provider for clarification. Admission and Anticipated Discharge Date Admission Date: April 26, 2025 Supervising Physician Co-Signing Physician Notes Attending attestation: Case reviewed with the advanced practitioner. I have personally performed a history and physical examination on the patient. I have reviewed the advanced practitioner's documentation on the date of service referenced in note, and I agree with, and take responsibility for the plan of care. Patient states his symptoms have resolved. The chest tightness worse with deep inspiration or with lying supine and resolved. Patient has been walking in the hallway of the unit without any perceived limitation and states that he "feels great ". Telemetry reveals sinus rhythm in the 80s to 90s. Exam: Cardiovascular: Regular rhythm, no murmurs rubs or gallops, no edema Impression: Pericarditis Patient stable for discharge on medication plan as outlined in Mrs Esteves's note. I spent a total of 30 minutes coordinating, documenting, and providing care for this patient excluding time spent in the performance of separately billed services or time spent by another provider. Alvaro Smith, Subjective Patient feeling great this morning. Walking laps in the hallway. No exertional chest pain. No pleuritic chest pain. No fever, cough, chills. No shortness of breath. Review of Systems Review of Systems: All systems reviewed & are unremarkable except as noted in HPI & below Physical Exam Constitutional: WD/WN, vitals as above well nourished; no acute distress Neck: trachea midline, no thyromegaly Respiratory: normal respiratory effort, lungs clear to auscultation Cardiovascular: Rate/Rhythm: regular rate and regular rhythm Heart Sounds: no murmur Vessels: no JVD Extremities: no edema Gastrointestinal (Abdomen): normal bowel sounds, soft, nontender, no hepatosplenomegaly Musculoskeletal: no cyanosis or clubbing, extremities motor strength 5/5 Skin: no rashes, warm and dry Neurologic: PERRL, EOMI, accommodation nl, no face palsy, no dysarthria Psychiatric: A+Ox3, euthymic affect Results & Data Vital Signs (Past 12 Hours) Vital Signs Temp Pulse Pulse Resp BP Pulse Ox O2 Del Method 04/27/25 07:46 36.5 C 86 18 103/84 95 Room Air 04/27/25 03:22 36.4 C L 75 17 109/65 94 Room Air 04/26/25 23:43 36.4 C L 77 18 98/69 L 94 Room Air 04/26/25 23:21 76 Laboratory Results Cardiac Enzymes 04/26/25 Range/Units 12:48 Troponin I High Sens 4.8 (0-20) pg/ml CBC 04/27/25 Range/Units 05:40 WBC 20.87 H D (4.8-10.8) K/ul RBC 5.29 (4.70-6.10) M/uL Hgb 15.7 (14.0-18.0) g/dl Hct 45.0 (42.0-52.0) % Plt Count 286 (130-400) K/uL Comprehensive Metabolic Panel 04/27/25 Range/Units 05:40 Sodium 136 (136-145) mmol/L Potassium 4.9 D (3.5-5.1) mmol/L Chloride 107 (98-107) mmol/L Carbon Dioxide 21 (21-32) mmol/L BUN 30 H (6-23) mg/dl Creatinine 1.19 (0.6-1.4) mg/dl Glucose 166 H (70-99(Fasting)) mg/dl Calcium 9.4 (8.6-10.3) mg/dl Intake and Output 04/26/25 04/27/25 04/27/25 22:59 06:59 14:59 Intake Total 120 / 500 100 / 500 Balance 120 / 500 100 / 500 Intake: Oral 120 / 500 100 / 500 Other: # Unmeasured Voids 1 1 Weight 83.9 kg Weight Measurement Method Built in [facility] Diagnostic Findings Telemetry reviewed: Normal sinus rhythm in the 60s to 90s. No arrhythmias. Medications Administered Current Inpatient Medications Colchicine (Colchicine 0.6 Mg Tab) 0.6 mg PO QAM [facility] Stop: 05/26/25 12:44 Last Admin: 04/27/25 08:07 Dose: 0.6 mg Doxycycline Hyclate (Doxycycline Hyclate 100 Mg Cap) 100 mg PO DAILY JASON Stop: 05/07/25 08:59 Last Admin: 04/27/25 08:06 Dose: 100 mg Ibuprofen (Ibuprofen 600 Mg Tab) 600 mg PO TID JASON Stop: 05/26/25 13:59 Last Admin: 04/27/25 08:06 Dose: 600 mg Pantoprazole Sodium (Pantoprazole 40 Mg Tab) 40 mg PO BID JASON Stop: 05/26/25 20:59 Last Admin: 04/27/25 08:07 Dose: 40 mg PG Care Time/CCT Total # of Minutes Spent Total Time Spent with Patient: Total time spent is greater than 50% in coordination of care (as documented) at patient's floor/unit and/or counseling patient: Coding Level of Care Code 79516 SUB INP/OBS CARE 3/50MIN Diagnoses Acute pericarditis, unspecified type I30.9 Chronicity: acute Pericarditis type: unspecified type Chest pain on breathing R07.1 Chest pain type: chest pain on breathing Abnormal ECG R94.31 Time Spent (min) 65 Comment 35 minutes were spent by Fidelina Esteves PA-C, [address] Smith (1) Pericarditis Chronicity: acute Pericarditis type: unspecified type Qualified Code(s): I30.9 - Acute pericarditis, unspecified (2) Chest pain Chest pain type: chest pain on breathing Qualified Code(s): R07.1 - Chest pain on breathing
--- NOTE | 2025-04-27 11:22 | Discharge Summary ---
<Statement entered by Maximus Grijalva DO - 04/27/25 16:31> I have seen and examined the patient and have discussed the case with the advance practice provider. I have reviewed the advanced practitioner's documentation, and I agree with, and take responsibility for that plan of care. Patient reports his pain is completely gone. Reviewed pericarditis with him Discussion with cardiology team, anticipating discharge Discharge plans as outlined below I spent a total of 15 minutes coordinating, documenting, and providing care for this patient excluding time spent by another provider/QHP. Discharge Summary Date of Service April 27, 2025 Principal Dx & Hospital Course #1 = Principal Diagnosis (1) Chest pain: (2) Acute pericarditis: Plan Patient is a 59-year-old male with significant past medical history who presented to the ED on 04/26/2025 with complaint of chest pain and was found to have acute pericarditis. #Chest pain 2/2 acute pericarditis P/w chest tightness, pleuritic chest pain and worsening chest pain when lying down/better with leaning forward --> sx c/w acute pericarditis Cards consulted Trop x 3 negative Unclear etiology: resp BioFire neg, tick panel neg (Babesia DNA PCR still pending) EKG demonstrating NSR with ST elevation vs early repolarization in inferior leads, slightly in V5/V6 also c/w acute pericarditis Chest CTA was negative for PE, findings possible for pulm hypertension Echo completed demonstrating normal LVEF, no wall motion abnormalities and no pulm hypertension Started on ibuprofen, colchicine w/ interval improvement in sx D/c recs from cards: -Recommend Ibuprofen 400 mg TID x for 7 days -Recommend colchicine 0.6 mg daily for 3 months -Recommend Protonix 40 mg BID for 7 days (while taking ibuprofen), then 40 mg daily for 3 months while taking colchicine Cards to arrange f/u appt #Malaria prophylaxis Recent travel to [place] for work Continue doxycycline previously prescribed as an OP PCP: Rosalind Waters DO Disposition: Pt d/c home in good condition w/ close PCP f/u next wk Patient seen in collaboration with Dr. Grijalva. Please see addendum. I spent a total of 48 minutes coordinating, documenting, and providing care for this patient excluding time spent in the performance of separately billed services or time spent by another provider/QHP. This included personally reviewing all current laboratories and imaging studies, medical reconciliation, outpatient chart review and discussion with specialists. This chart was completed in part utilizing Speech Voice Recognition Software. Grammatical errors, random word insertions, pronoun errors, and incomplete sentences are an occasional consequence of this system due to software limitations, ambient noise, and hardware issues. Any formal questions or concerns about the content, text, or information contained within the body of this dictation should be directly addressed to the provider for clarification. Notes For Next Care Provider Ensure cardiology follow-up within the next 2-4 weeks Medication Changes From Visit Ibuprofen, colchicine for acute pericarditis Protonix for GI prophylaxis while on ibuprofen, colchicine Admission HPI Per Admitting Provider 59 year old male with no significant PMH who presented to the ED on 04/26/2025 with chest pain. Patient reports at 299 he developed chest tightness across his chest and extending up into his neck. Patient is unsure if the pain woke him from sleep. Took his blood pressure at home and noticed it was elevated in the 150s/100s, which prompted him to seek evaluation in the ED. Reports the chest pa in has been constant since 299 with slight fluctuation in severity but mostly no improvement. Pain is worse when he takes a deep breath and improves when he leans forward. Denies radiation of pain anywhere except for feeling tightness in his neck as well. Received toradol and albuterol in the ED with no improvement. Notes he was at [facility] in August 2023 for chest pain, but reports that pain felt more like heartburn that wouldn't go away, whereas his current pain is with deep breaths. Workup at that time included a stress echo which was normal. He denies any recent illness, fatigue, weakness, cough, cold symptoms, SOB, abdominal pain, N/V/D, new rashes. He travels extensively for work - recently returned from [place] 5 days ago and from [place] yesterday. Is currently taking doxycycline for anti-malarial protection. Titers and vaccinations are all up to date. Does not often exert himself to notice any dyspnea with exertion but has been carrying out ADLs without difficulty. Denies any unusual activity or lifting. Admission Exam Per Admitting Provider General/Psych: WD/WN, sitting up in bed, NAD, conversing easily Head: normocephalic, atraumatic Eyes: normal inspection, PERRL, conjunctivae pink ENT: external ear and nose normal, oropharynx normal Neck: normal visual inspection, trachea midline Respiratory: normal respiratory effort, lungs clear to auscultation, no wheeze/rales/rhonchi, no accessory muscle use Cardiovascular: regular rate and rhythm, no murmur/rub/gallop, no JVD Extremities: no cyanosis or clubbing, normal peripheral pulses, no BLE edema Abdomen/GI: normal bowel sounds, soft, nontender Neurologic/MSK: A+Ox3, motor strength 5/5, moves all extremities Skin: normal color, warm and dry; erythematous maculopapular rash to left forearm Discharge Exam General/Neuro: WD/WN, sitting up in bed, NAD, conversing easily, A&Ox3, pleasant Head: normocephalic, atraumatic Eyes: normal inspection, PERRL, conjunctivae pink ENT: external ear and nose normal, oropharynx moist Neck: normal visual inspection, trachea midline Respiratory: normal respiratory effort, CTAB Cardiovascular: RRR, no murmur/rub/gallop, no BLE edema Abdomen/GI: normal bowel sounds, soft, nontender MSK: motor strength 5/5, actively moves all extremities Updated Medication List Medication Instructions Recorded Confirmed Type albuterol sulfate 90 mcg/actuation 2 puff inhalation Q4H PRN 04/26/25 04/26/25 History aerosol inhaler Shortness Of Breath doxycycline hyclate 100 mg capsule 100 mg PO DAILY 04/26/25 04/26/25 History colchicine 0.6 mg tablet (Colcrys) 0.6 mg PO QAM 3 months #90 tabs 04/27/25 Rx ibuprofen 600 mg tablet 600 mg PO TID #17 tabs 04/27/25 Rx pantoprazole 40 mg tablet,delayed See Rx Instructions .Route 04/27/25 Rx release .COMPLEX #90 tabs Hospital Stay Data Consultations 04/26/25 10:55 Consult Cardiology Routine Diagnostic Imagining Performed 04/26/25 05:23 CT angio chest PE protocol Stat Discharge Instructions Given to Patient (Per Discharging Provider) You were admitted to [facility] due to chest pain and were found to have acute pericarditis. Acute pericarditis is inflammation of the tank cardium, the thin sac surrounding the heart. The most common cause is a viral infection; however, in many cases, the cause remains unknown. Please continue taking the following medications as prescribed: 1. Ibuprofen 400mg by mouth 3x/day for a total of 7 days [next dose this afternoon] 2. Colchicine 0.6mg by mouth once daily for 3 months [next dose tomorrow, 04/28/2025] 3. Protonix 40mg by mouth 2x/day while on the ibuprofen, then 40mg daily for 3 months while taking colchicine All of the above medications have been sent to your personal pharmacy for pickup: [facility] in [place], [place]. Please attend your PCP hospital discharge follow-up appointment as outlined below. Date & Time: 05/02/2025 @ 11:10AM Provider: Rosalind Waters DO Location: [facility] You will be contacted by [facility] cardiology soon to schedule a follow-up appointment with them. Seek medical attention if you have: * temperature above 101F * chest pain or trouble breathing * abdominal pain, nausea, vomiting * diarrhea, dark stools or bloody stools * any unanswered questions or concerns Call 911 if symptoms are severe. Please take good care of yourself. It has been a pleasure taking care of you. If you have any questions regarding your recent hospitalization, please contact [facility] and request a [facility] Hospitalist @ [phone]. Total Time Total Time Spent Total Time Spent (In Minutes): 48
[2025-04-27 11:41] VITALS: BP 134/77; O2SAT 97
[2025-04-27 12:31] VITALS: PULSE 87; TEMP 98.1
== END 2025-04-27 13:25 | disposition home or self-care (01) | DRG 316 ==
LOC: ED 05:11 → 2S 10:13 → SUATTDRO 10:13 → 2S 11:17